=== PATIENT | male | born 1935 | race American Indian/Alaskan Native ===

== ENCOUNTER 2016-10-14 12:52 | Emergency (ER) | payer MEDICARE ==
[2016-10-14 13:00] VITALS: BMI 23.6
[2016-10-14 13:01] VITALS: RESP 18
--- NOTE | 2016-10-14 13:25 | C.PDOC ---
History Of Present Illness 81M c/o watery diarrhea small amount and intermittent for the last week that was worse/higher volume this morning. he went to see his pcp Dr Dietrich who then instructed him to come here. he denies any n/v or abdominal pain. no fever. Time Seen by Provider: 10/14/16 13:20 Chief Complaint (Nursing): Abdominal Pain History Per: Patient History/Exam Limitations: no limitations Onset/Duration Of Symptoms: Days, Intermittent Episodes Past Medical History Reviewed: Historical Data, Nursing Documentation, Vital Signs Vital Signs: Last Vital Signs Temp 97.4 F L 10/14/16 18:21 Pulse 80 10/14/16 18:21 Resp 18 10/14/16 13:00 BP 176/80 H 10/14/16 18:21 Pulse Ox 97 10/14/16 18:21 - Medical History PMH: HTN, Hypercholesterolemia - [facility] Procedures OTH & OPEN REPAIR DIRECT INGUINAL HERNIA W GRAFT OR PROSTH (08/04/14) Family History: States: No Known Family Hx Other Family History: nc - Social History Hx Alcohol Use: No Hx Substance Use: No - Immunization History Hx Tetanus Toxoid Vaccination: No Hx Influenza Vaccination: No Hx Pneumococcal Vaccination: No Review Of Systems Constitutional: Negative for: Fever, Chills Respiratory: Negative for: Cough, Shortness of Breath Gastrointestinal: Positive for: Diarrhea. Negative for: Nausea, Vomiting, Abdominal Pain, Melena, Hematochezia Genitourinary: Negative for: Dysuria Neurological: Positive for: Weakness (chronic from prior stroke) Physical Exam - Physical Exam Appears: Well, Non-toxic, No Acute Distress Skin: Warm, Dry Head: Atraumatic Nose: No Epistaxis Oral Mucosa: Moist Cardiovascular: Rhythm Regular Respiratory: No Decreased Breath Sounds, No Accessory Muscle Use, No Rales, No Rhonchi, No Wheezing Gastrointestinal/Abdominal: Bowel Sounds, No Soft, No Tenderness, No Distention , No Guarding, No Rebound Extremity: No Swelling Neurological/Psych: Oriented x3 ED Course And Treatment - Laboratory Results Result Diagrams: 10/14/16 13:47 10/14/16 14:06 O2 Sat by Pulse Oximetry: 99 (RA) Pulse Ox Interpretation: Normal - CT Scan/US CT - Abdomen & Pelvis Other Rad Studies (CT/US): Read By Radiologist, Radiology Report Reviewed CT/US Interpretation: PROCEDURE: CT Abdomen and Pelvis without intravenous contrast. HISTORY: abd pain. COMPARISON: None. TECHNIQUE: Without contrast.. Contrast Dose: 0. Radiation dose: Total exam DLP = 317.18 mGy-cm. This CT exam was performed using one or more of the following dose reduction techniques: Automated exposure control, adjustment of the mA and/or kV according to patient size, and/or use of iterative reconstruction technique. FINDINGS: LOWER THORAX: No abnormality. LIVER: Examination limited. The most superior aspect of the liver end of the spleen is not included in this examination. Normal size and contour. Multiple small hypodensities common nonspecific. Largest measures 12 mm in diameter. No biliary dilatation. GALLBLADDER AND BILE DUCTS: Cholelithiasis. No mural thickening. PANCREAS: Unremarkable. No gross lesion or ductal dilatation. SPLEEN: Unremarkable. ADRENALS: Unilateral left adrenal hypertrophy. No adrenal mass. KIDNEYS AND URETERS: Mid left renal fluid density mass, 4.5 cm diameter, with apparent internal septation. Recommend correlation with ultrasound examination. No right renal mass. No renal calculus or hydronephrosis. VASCULATURE: Unremarkable. No aortic aneurysm. BOWEL: Moderate retained feces. No bowel obstruction. APPENDIX: Not identified. No secondary findings to suggest acute appendicitis. PERITONEUM: Unremarkable. No free fluid. No free air. LYMPH NODES: Unremarkable. No enlarged lymph nodes. BLADDER: Unremarkable. REPRODUCTIVE: Radiation seed implants in prostate bed. BONES: Mild lumbar levoscoliosis. Grade 1 retrolisthesis at L5-S1. Multilevel central lumbar spinal stenosis, most severe at L3-4. OTHER FINDINGS: None. IMPRESSION: No acute abnormality. Multilevel lumbar spinal stenosis. Moderate retained feces. 4.5 cm septated left renal cyst. Recommend correlation with ultrasound examination. Cholelithiasis without evidence of cholecystitis. Additional minor findings as above. Medical Decision Making Medical Decision Making: disc w Dr Dietrich who rec CT abd/pelvis disc results w Dr Dietrich- rec f/i in office disc results w the pt who denies complaints at this time, v/u of and agrees w plan Disposition - Disposition Referrals: Dave Dietrich MD [Staff Provider] - Disposition: HOME/ ROUTINE Disposition Time: 18:31 Condition: GOOD Additional Instructions: Please follow up with Dr Dietrich in the next week for the incidental findings on your CT scan. Return to the ER for any worsening symptoms, abdominal pain, fever , or for any other concerns. Prescriptions: Cholestyramine/Aspartame [Cholestyramine Light] 4 gm PO BID PRN #1 bottle PRN Reason: Diarrhea Instructions: Acute Diarrhea (ED) Forms: General Discharge Instructions, [facility] (Japanese) - Clinical Impression Clinical Impression: Diarrhea
[2016-10-14] MEDS ORDERED: Sodium Chloride 0.9% 1,000 ML IV ONE (13:36)
[2016-10-14 13:51] LABS: BASO % 0.7 % (0.0-2.0); EOS # 0.1 K/uL (0.0-0.7); EOS % 1.2 % (0.0-4.0); HEMATOCRIT 35.4 % (35.0-51.0); LYMPH # 1.7 K/uL (1.0-4.3); LYMPH % 27.3 % (20.0-40.0); MEAN CELL VOLUME 88.5 fL (80.0-94.0); MEAN CORPUSCULAR HEMOGLOBIN 28.2 pg (27.0-31.0); MEAN CORPUSCULAR HGB CONC 31.9 g/dL (33.0-37.0); MEAN PLATELET VOLUME 7.3 fL (7.2-11.7); MONO # 0.4 K/uL (0.0-0.8); MONO % 6.9 % (0.0-10.0); RED CELL DISTRIBUTION WIDTH 14.3 % (11.5-14.5); WHITE BLOOD COUNT 6.3 K/uL (4.8-10.8)
[2016-10-14 14:23] LABS: CHLORIDE 106 mmol/L (98-107)
[2016-10-14 14:25] LABS: POTASSIUM 3.4 mmol/L (3.6-5.2); SODIUM 140 mmol/L (132-148)
[2016-10-14 14:27] LABS: ALKALINE PHOSPHATASE 64 U/L (38-126); AST/SGOT 24 U/L (17-59); BILIRUBIN,TOTAL 0.6 mg/dL (0.2-1.3); CARBON DIOXIDE 24 mmol/L (22-30); GFR AFRICAN-AMERICAN > 60
[2016-10-14 14:28] LABS: ALB/GLOB RATIO 1.2 (1.0-2.1); ALT/SGPT 25 U/L (21-72); BLOOD UREA NITROGEN 21 mg/dL (9-20); CALCIUM 8.8 mg/dl (8.6-10.4); GLUCOSE,RANDOM 88 mg/dL (75-110); TOTAL PROTEIN 7.1 g/dL (6.3-8.3)
[2016-10-14] MEDS ORDERED: Iohexol 240 (50 ml) ONE (15:16)
[2016-10-14] MEDS ORDERED: Iohexol 240 (50 ml) PO ONE (15:23)
--- NOTE | 2016-10-14 17:41 | CT ---
PROCEDURE: CT Abdomen and Pelvis without intravenous contrast HISTORY: abd pain COMPARISON: None. TECHNIQUE: Without contrast.. Contrast Dose: 0 Radiation dose: Total exam DLP = 317.18 mGy-cm. This CT exam was performed using one or more of the following dose reduction techniques: Automated exposure control, adjustment of the mA and/or kV according to patient size, and/or use of iterative reconstruction technique. FINDINGS: LOWER THORAX: No abnormality. LIVER: Examination limited. The most superior aspect of the liver end of the spleen is not included in this examination. Normal size and contour. Multiple small hypodensities common nonspecific. Largest measures 12 mm in diameter. No biliary dilatation. GALLBLADDER AND BILE DUCTS: Cholelithiasis. No mural thickening. PANCREAS: Unremarkable. No gross lesion or ductal dilatation. SPLEEN: Unremarkable. ADRENALS: Unilateral left adrenal hypertrophy. No adrenal mass. KIDNEYS AND URETERS: Mid left renal fluid density mass, 4.5 cm diameter, with apparent internal septation. Recommend correlation with ultrasound examination. No right renal mass. No renal calculus or hydronephrosis. VASCULATURE: Unremarkable. No aortic aneurysm. BOWEL: Moderate retained feces. No bowel obstruction. APPENDIX: Not identified. No secondary findings to suggest acute appendicitis. PERITONEUM: Unremarkable. No free fluid. No free air. LYMPH NODES: Unremarkable. No enlarged lymph nodes. BLADDER: Unremarkable. REPRODUCTIVE: Radiation seed implants in prostate bed. BONES: Mild lumbar levoscoliosis. Grade 1 retrolisthesis at L5-S1. Multilevel central lumbar spinal stenosis, most severe at L3-4. OTHER FINDINGS: None. IMPRESSION: No acute abnormality. Multilevel lumbar spinal stenosis. Moderate retained feces. 4.5 cm septated left renal cyst. Recommend correlation with ultrasound examination. Cholelithiasis without evidence of cholecystitis. Additional minor findings as above.
[2016-10-14 18:22] VITALS: BP 176/80; PULSE 80; TEMP 97.4
[2016-10-18 13:29] VITALS: O2SAT 99
== END 2016-10-14 18:50 | disposition home or self-care (01) ==
LOC: C.ER 12:52
DX: R19.7 Diarrhea, unspecified (principal); I10 Essential (primary) hypertension; E78.00 Pure hypercholesterolemia, unspecified
CPT/HCPCS: 74176; 80053; 83690; 85025; 96360; 99285; J7040; Q9966

== ENCOUNTER 2017-09-28 10:26 | Inpatient (IN) | payer MEDICARE ==
[2017-09-28 10:26] VITALS: BMI 23.6
[2017-09-28] MEDS ORDERED: Sodium Chloride 0.9% 1,000 ML IV ONE (11:14)
--- NOTE | 2017-09-28 11:40 | RAD ---
HISTORY: r/o infiltrate COMPARISON: Chest x-ray performed 07/24/14 TECHNIQUE: Chest, one view. FINDINGS: LUNGS: Bronchovascular crowding. Chronic appearing interstitial markings. No focal consolidation. Please note that chest x-ray has limited sensitivity for the detection of pulmonary masses. PLEURA: No significant pleural effusion identified. No definite pneumothorax . CARDIOVASCULAR: Cardiomegaly. OSSEOUS STRUCTURES: Degenerative changes of the spine. Partially imaged cervical fusion hardware. VISUALIZED UPPER ABDOMEN: Unremarkable. OTHER FINDINGS: None. IMPRESSION: Bronchovascular crowding. Chronic appearing interstitial markings. Cardiomegaly.
[2017-09-28 12:33] LABS: URINE BILIRUBIN NEGATIVE (NEGATIVE); URINE CLARITY Clear (Clear); URINE COLOR YELLOW (YELLOW); URINE GLUCOSE (UA) Normal (Normal)
[2017-09-28 12:34] LABS: URINE BLOOD SMALL (NEGATIVE); URINE LEUKOCYTE ESTERASE Negative Leu/uL (Negative); URINE PROTEIN NEGATIVE (NEGATIVE); URINE UROBILINOGEN 0.2 mg/dL (0.2-1.0)
[2017-09-28 12:35] LABS: SQUAMOUS EPITHIAL 2 /hpf (0-5)
[2017-09-28 12:36] LABS: URINE BACTERIA SMALL (<OCC)
[2017-09-28 13:13] LABS: ALB/GLOB RATIO 1.2 (1.0-2.1); ALBUMIN 4.1 g/dL (3.5-5.0); ALT/SGPT 23 U/L (21-72); AST/SGOT 19 U/L (17-59); BLOOD UREA NITROGEN 14 mg/dL (9-20); CALCIUM 9.3 mg/dl (8.6-10.4); GFR NON-AFRICAN AMERICAN > 60
--- NOTE | 2017-09-28 13:33 | VASCLAB ---
Date of service: 09/28/2017 PROCEDURE: Lower Extremity Venous Duplex Exam. HISTORY: Pain / Swelling r/o DVT PRIORS: None. TECHNIQUE: Bilateral common femoral, femoral, popliteal and posterior tibial, peroneal and great saphenous veins were evaluated. Flow was assessed with color Doppler, compressibility, assessment of phasic flow and augmentation response. Report prepared by Ruslan Horton, RADHA, RVT FINDINGS: RIGHT: 1. Common Femoral Vein: 1.1. Compressibility - Fully compressible: Thrombus - None : Flow - Phasic: Augmentation -Normal: Reflux - None. 2. Femoral Vein: 2.1. Compressibility - Fully compressible: Thrombus - None : Flow - Phasic: Augmentation -Normal: Reflux - None. 3. Popliteal Vein: 3.1. Compressibility - Fully compressible: Thrombus - None : Flow - Phasic: Augmentation -Normal: Reflux - None. 4. Posterior Tibial Vein: 4.1. Compressibility - Fully compressible: Thrombus - None: Flow - Phasic: Augmentation -Normal: Reflux - None. 5. Peroneal Vein: 5.1. Compressibility - Fully compressible: Thrombus - None: Flow - Phasic: Augmentation -Normal: Reflux - None. 6. Great Saphenous Vein: 6.1. Compressibility - Fully compressible: Thrombus - None: Flow - Phasic: Augmentation - Normal: Reflux - None. LEFT: 1. Common Femoral Vein: 1.1. Compressibility - Fully compressible: Thrombus - None: Flow - Phasic: Augmentation -Normal: Reflux - None. 2. Femoral Vein: 2.1. Compressibility - Fully compressible: Thrombus - None: Flow - Phasic: Augmentation -Normal: Reflux - None. 3. Popliteal Vein: 3.1. Compressibility - Fully compressible: Thrombus - None : Flow - Phasic: Augmentation -Normal: Reflux - None. 4. Posterior Tibial Vein: 4.1. Compressibility - Fully compressible: Thrombus - None: Flow - Phasic: Augmentation -Normal: Reflux - None. 5. Peroneal Vein: 5.1. Compressibility - Fully compressible: Thrombus - None: Flow - Phasic: Augmentation -Normal: Reflux - None. 6. Great Saphenous Vein: 6.1. Compressibility - Fully compressible: Thrombus - None: Flow - Phasic: Augmentation - Normal: Reflux - None. OTHER FINDINGS: Right: None significant. Left: None significant. IMPRESSION: Right: No evidence of deep or superficial vein thrombosis of the right lower extremity. Normal valve function noted of the right side. Left: No evidence of deep or superficial vein thrombosis of the left lower extremity. Normal valve function noted of the left side.
--- NOTE | 2017-09-28 13:46 | CT ---
Date of service: 09/28/2017 PROCEDURE: CT HEAD WITHOUT CONTRAST. HISTORY: weakness - h/o CVA in 2005 COMPARISON: None available TECHNIQUE: Axial computed tomography images were obtained through the head/brain without intravenous contrast. Radiation dose: Total exam DLP = 879.53 mGy-cm. This CT exam was performed using one or more of the following dose reduction techniques: Automated exposure control, adjustment of the mA and/or kV according to patient size, and/or use of iterative reconstruction technique. FINDINGS: HEMORRHAGE: No intracranial hemorrhage. BRAIN: Diffuse atrophy with prominence of the ventricles and sulci noted. No mass effect or edema. Bilateral basal ganglia calcifications. Scattered periventricular and subcortical white matter hypodensities, which are nonspecific, but often seen with chronic microvascular ischemic disease. 4mm right basal ganglia lacunar infarct, likely chronic. Please note that MRI with diffusion imaging is more sensitive in the detection of acute ischemic event. VENTRICLES: No hydrocephalus. CALVARIUM: Unremarkable. PARANASAL SINUSES: Unremarkable as visualized. No significant inflammatory changes. MASTOID AIR CELLS: Unremarkable as visualized. No inflammatory changes. OTHER FINDINGS: None. IMPRESSION: Nonspecific white matter changes. Generalized atrophy.
--- NOTE | 2017-09-28 14:11 | C.PDOC ---
History Of Present Illness 82 year old male patient sent to the ER by PMD for weakness, dizziness, decreased in appetite and falls. Family reports patient decreased ambulating second to weakness and poor appetite. Patient denies chest pain, SOB, fever and cough. Time Seen by Provider: 09/28/17 10:38 Chief Complaint (Nursing): Weakness/Neurological Deficit History Per: Patient, Family History/Exam Limitations: no limitations Onset/Duration Of Symptoms: Hrs Current Symptoms Are (Timing): Still Present Past Medical History Reviewed: Historical Data, Nursing Documentation, Vital Signs Vital Signs: Last Vital Signs Temp 98.2 F 09/28/17 17:42 Pulse 66 09/28/17 17:42 Resp 97 H 09/28/17 17:42 BP 178/73 H 09/28/17 17:42 Pulse Ox 20 L 09/28/17 17:42 - Medical History PMH: HTN, Hypercholesterolemia - [facility] Procedures OTH & OPEN REPAIR DIRECT INGUINAL HERNIA W GRAFT OR PROSTH (08/04/14) Family History: States: No Known Family Hx - Social History Hx Alcohol Use: No Hx Substance Use: No - Immunization History Hx Tetanus Toxoid Vaccination: No Hx Influenza Vaccination: No Hx Pneumococcal Vaccination: No Review Of Systems Except As Marked, All Systems Reviewed And Found Negative. Constitutional: Positive for: Other (decreased in appetite and falls ). Negative for: Fever Cardiovascular: Negative for: Chest Pain Respiratory: Negative for: Cough, Shortness of Breath Neurological: Positive for: Weakness, Dizziness Physical Exam - Physical Exam Appears: Non-toxic, No Acute Distress Skin: Normal Color, Warm, Dry Head: Atraumatic, Normacephalic Eye(s): bilateral: Normal Inspection Ear(s): Bilateral: Normal Oral Mucosa: Dry Throat: Normal Neck: Normal ROM, Supple Chest: Symmetrical, No Deformity Cardiovascular: Rhythm Regular Respiratory: Normal Breath Sounds Gastrointestinal/Abdominal: Soft, No Tenderness, No Distention Back: No CVA Tenderness Extremity: Normal ROM (x4) Neurological/Psych: Oriented x3, Normal Speech Gait: Steady ED Course And Treatment - Laboratory Results Result Diagrams: 09/28/17 14:14 09/28/17 12:56 ECG: Interpreted By Me, Viewed By Me ECG Rhythm: Sinus Rhythm ECG Interpretation: No Acute Changes Interpretation Of ECG: left axis deviation Rate From EC O2 Sat by Pulse Oximetry: 98 (RA) Pulse Ox Interpretation: Normal - Other Rad CXR X-Ray: Read By Radiologist Interpretation: Accession No. : [id number]. Patient Name / ID : NEW ASKEW / [id number]. Exam Date : 09/28/2017 11:18:27 ( Approved ). Study Comment : Sex / Age : M / 82Y. Creator : Laverne Pina MD. Dictator : Laverne Pina MD. Financial Services Technician : Heat Treat Technician : Laverne Pina MD. Approver2 : Report Date : 09/28/2017 11:39:15. My Comment : . HISTORY: r /o infiltrate. COMPARISON: Chest x-ray performed 07/24/14. TECHNIQUE: Chest, one view. FINDINGS: LUNGS: Bronchovascular crowding. Chronic appearing interstitial markings. No focal consolidation. Please note that chest x-ray has limited sensitivity for the detection of pulmonary masses. PLEURA: No significant pleural effusion identified. No definite pneumothorax . CARDIOVASCULAR: Cardiomegaly. OSSEOUS STRUCTURES: Degenerative changes of the spine. Partially imaged cervical fusion hardware. VISUALIZED UPPER ABDOMEN : Unremarkable. OTHER FINDINGS: None. IMPRESSION: Bronchovascular crowding. Chronic appearing interstitial markings. Cardiomegaly. duplex scan lower extremity X-Ray: Read By Radiologist Interpretation: Accession No. : [id number]. Patient Name / ID : NEW ASKEW / [id number]. Exam Date : 09/28/2017 13:04:49 ( Approved ). Study Comment : Sex / Age : M / 82Y. Creator : Lisa Jack. Dictator : Laverne Pina MD. Financial Services Technician : Heat Treat Technician : Laverne Pina MD. Approver2 : Report Date : 09/28/2017 13:12:01. My Comment : . Date of service: 09/28/2017. PROCEDURE: CT HEAD WITHOUT CONTRAST. HISTORY: weakness - h/o CVA in 2004. COMPARISON: None available. TECHNIQUE: Axial computed tomography images were obtained through the head/brain without intravenous contrast. Radiation dose: Total exam DLP = 879.53 mGy-cm. This CT exam was performed using one or more of the following dose reduction techniques: Automated exposure control, adjustment of the mA and/or kV according to patient size, and/or use of iterative reconstruction technique. FINDINGS: HEMORRHAGE: No intracranial hemorrhage. BRAIN: Diffuse atrophy with prominence of the ventricles and sulci noted. No mass effect or edema. Bilateral basal ganglia calcifications. Scattered periventricular and subcortical white matter hypodensities, which are nonspecific, but often seen with chronic microvascular ischemic disease. 4mm right basal ganglia lacunar infarct, likely chronic. Please note that MRI with diffusion imaging is more sensitive in the detection of acute ischemic event. VENTRICLES: No hydrocephalus. CALVARIUM: Unremarkable. PARANASAL SINUSES: Unremarkable as visualized. No significant inflammatory changes. MASTOID AIR CELLS: Unremarkable as visualized. No inflammatory changes. OTHER FINDINGS: None. IMPRESSION: Nonspecific white matter changes. Generalized atrophy. - CT Scan/US Head CT Other Rad Studies (CT/US): Read By Radiologist, Radiology Report Reviewed CT/US Interpretation: Accession No. : [id number]. Patient Name / ID : NEW ASKEW / [id number]. Exam Date : 09/28/2017 13:04:49 ( Approved ). Study Comment : Sex / Age : M / 82Y. Creator : Lisa Jack. Dictator : Laverne Pina MD. Financial Services Technician : Heat Treat Technician : Laverne Pina MD. Approver2 : Report Date : 09/28/2017 13:12:01. My Comment : . Date of service: 09/28/2017. PROCEDURE: CT HEAD WITHOUT CONTRAST. HISTORY: weakness - h/o CVA in 2004. COMPARISON: None available. TECHNIQUE: Axial computed tomography images were obtained through the head/brain without intravenous contrast. Radiation dose: Total exam DLP = 879.53 mGy-cm. This CT exam was performed using one or more of the following dose reduction techniques: Automated exposure control, adjustment of the mA and/or kV according to patient size, and/or use of iterative reconstruction technique. FINDINGS: HEMORRHAGE: No intracranial hemorrhage. BRAIN: Diffuse atrophy with prominence of the ventricles and sulci noted. No mass effect or edema. Bilateral basal ganglia calcifications. Scattered periventricular and subcortical white matter hypodensities, which are nonspecific, but often seen with chronic microvascular ischemic disease. 4mm right basal ganglia lacunar infarct, likely chronic. Please note that MRI with diffusion imaging is more sensitive in the detection of acute ischemic event. VENTRICLES: No hydrocephalus. CALVARIUM: Unremarkable. PARANASAL SINUSES: Unremarkable as visualized. No significant inflammatory changes. MASTOID AIR CELLS: Unremarkable as visualized. No inflammatory changes. OTHER FINDINGS: None. IMPRESSION: Nonspecific white matter changes. Generalized atrophy. Medical Decision Making Medical Decision Making: Impression: weakness, dizziness, decreased PO, and falls. Plans: -- CT head w/o contrast -- EKG -- blood work -- CXR -- IV fluids -- Urine cx -- UA -- Venous duplex scan Reassess: Patient is resting comfortably. Patient remains stable and afebrile. Disposition - Disposition Disposition: HOSPITALIZED Disposition Time: 14:20 Condition: STABLE - Clinical Impression Clinical Impression: Dehydration, Weakness - Scribe Statement The provider has reviewed the documentation as recorded by the Baltazar Reeder Do Provider Attestation: All medical record entries made by the Scribe were at my direction and personally dictated by me. I have reviewed the chart and agree that the record accurately reflects my personal performance of the history, physical exam, medical decision making, and the department course for this patient. I have also personally directed, reviewed, and agree with the discharge instructions and disposition.
[2017-09-28 14:22] LABS: BASO # 0.1 K/uL (0.0-0.2); BASO % 0.9 % (0.0-2.0); EOS # 0.3 K/uL (0.0-0.7); EOS % 4.3 % (0.0-4.0); HEMOGLOBIN 11.9 g/dL (12.0-18.0); LYMPH # 2.3 K/uL (1.0-4.3); MEAN CELL VOLUME 88.9 fL (80.0-94.0); MEAN CORPUSCULAR HEMOGLOBIN 29.7 pg (27.0-31.0); MEAN CORPUSCULAR HGB CONC 33.4 g/dL (33.0-37.0); MONO # 0.5 K/uL (0.0-0.8); MONO % 7.4 % (0.0-10.0); NEUT # 3.1 K/uL (1.8-7.0); NEUT % 50.4 % (50.0-75.0); NRBC % 0.1 % (0.0-2.0); RBC 4.03 Mil/uL (4.40-5.90); RED CELL DISTRIBUTION WIDTH 13.8 % (11.5-14.5); WHITE BLOOD COUNT 6.1 K/uL (4.8-10.8)
--- NOTE | 2017-09-28 19:07 | CARD ---
APPROVED REPORT Date of service: 09/28/2017 EKG Measurement Heart [id number] <Conclusion> Normal sinus rhythm Left axis deviation Minimal voltage criteria for LVH, may be normal variant Inferior infarct, age undetermined Abnormal ECG
--- NOTE | 2017-09-29 06:33 | HP ---
Copied To: Dave Dietrich MD Attending MD: Dave Dietrich MD HISTORY OF PRESENT ILLNESS: This is an 82-year-old male with history of multiple medical problems, presented to emergency room after frequent falls. The patient has been having unsteady gait that is getting worse with tendency to fall toward the right side. The patient was evaluated in the emergency room and admitted for further management. The patient has been walking with a cane, and the weakness has been due to lumbosacral radiculopathy. Other review of system is negative. ALLERGIES: NO KNOWN ALLERGY. MEDICATIONS: Reviewed as per APR. PAST MEDICAL HISTORY: Hypertension, benign prostatic hypertrophy, osteoarthritis. SOCIAL HISTORY: Positive for smoking. No EtOH or substance abuse. FAMILY HISTORY: Not contributory. MEDICATIONS: Reviewed as per APR. PHYSICAL EXAMINATION: GENERAL: The patient is in bed, not in any cardiopulmonary distress. VITAL SIGNS: Blood pressure 178/73, temperature 98.2, respiratory rate 20, and pulse 66. HEENT: Pupils equal, reactive to light. Normal-appearing mucosa of the conjunctivae. NECK: Supple. No JVD. No carotid bruit. No lymph node. No thyromegaly. CHEST AND LUNGS: Bilateral symmetrical expansion. Good air exchange. No rales. No rhonchi. CARDIOVASCULAR SYSTEM: PMI not localized. S1, S2. No additional sounds. ABDOMEN: Normoactive bowel sounds. No tenderness. No organomegaly. No masses. EXTREMITIES: No cyanosis, no clubbing, no edema. SOURCING INTERN: Alert, awake, oriented x3, and the patient has slight deformity of the left upper extremity. ASSESSMENT: 1. Lumbosacral radiculopathy. 2. Possible rheumatoid arthritis with morning stiffness and ulnar deviation of the left upper extremity. 3. Benign hypertrophic osteoarthropathy. PLAN: Neuro consult, and we will follow recommendations. Physical therapy workup for rheumatoid arthritis. Dave Dietrich MD
--- NOTE | 2017-09-29 07:10 | CP.PCM.CON ---
History of Present Illness - History of Present Illness History of Present Illness: CONSULT DICTATED POST TRAUMATIC - NEW WEAKNESS ON HIS LEFT SIDE AND REQUIRE WALKER CERVICAL MYELOPATHY ??? MICROPALEONTOLOGIST - STROKE BLADDER INTACT MRI BRAIN/CERV SPINE PT FALL PRECAUTION ASA/BACLOFEN REST PER ORDER THANKS Past Patient History - Past Medical History & Family History Past Medical History?: Yes - Past Social History Smoking Status: Heavy Smoker > 10 Cigarettes Daily - CARDIAC Hx Cardiac Disorders: Yes Hx Hypercholesterolemia: Yes Hx Hypertension: Yes - PULMONARY Hx Respiratory Disorders: No - NEUROLOGICAL Hx Neurological Disorder: Yes HX Cerebrovascular Accident: Yes (RT SIDED WEAKNESS) - HEENT Hx HEENT Problems: Yes Hx Cataracts: Yes - RENAL Hx Chronic Kidney Disease: No - ENDOCRINE/METABOLIC Hx Endocrine Disorders: No - HEMATOLOGICAL/ONCOLOGICAL Hx Cancer: Yes (PROSTATE) - INTEGUMENTARY Hx Dermatological Problems: No - MUSCULOSKELETAL/RHEUMATOLOGICAL Hx Musculoskeletal Disorders: Yes Hx Falls: Yes - GASTROINTESTINAL Hx Gastrointestinal Disorders: No - GENITOURINARY/GYNECOLOGICAL Hx Genitourinary Disorders: Yes Hx Prostate Cancer: Yes (SEEDS/RADIATION) - PSYCHIATRIC Hx Psychophysiologic Disorder: No Hx Substance Use: No - SURGICAL HISTORY Hx Surgeries: Yes Hx Musculoskeletal Surgery: Yes (CERVICAL /SCREWS AND PINS) Other/Comment: PROSTATE SEEDS/RADIATION - ANESTHESIA Hx Anesthesia: Yes Hx Anesthesia Reactions: No Hx Malignant Hyperthermia: No Has any member of the family had a problem w/ anesthesia?: No Meds Allergies/Adverse Reactions: Allergies Allergy/AdvReac Type Severity Reaction Status Date / Time No Known Allergies Allergy Verified 09/28/17 10:31 - Medications Medications: Current Medications Atenolol (Tenormin) 50 mg PO DAILY [facility] Chlorthalidone (Hygroton) 25 mg PO DAILY [facility] Folic Acid (Folic Acid) 1 mg PO DAILY [facility] Heparin Sodium (Porcine) (Heparin) 5,000 units SC Q12 [facility] Last Admin: 09/28/17 21:33 Dose: 5,000 units Pneumococcal Polyvalent Vaccine (Pneumovax 23 Vaccine) 0.5 ml IM .ONCE ONE Stop: 09/30/17 08:01 Rosuvastatin Calcium (Crestor) 10 mg PO [facility] Last Admin: 09/28/17 21:33 Dose: 10 mg Tamsulosin HCl (Flomax) 0.4 mg PO DAILY [facility] Results - Vital Signs Recent Vital Signs: Last Vital Signs Temp 98.1 F 09/28/17 23:49 Pulse 61 09/28/17 23:49 Resp 16 09/28/17 23:49 BP 130/69 09/28/17 23:49 Pulse Ox 98 09/28/17 23:49 - Labs Result Diagrams: 09/28/17 14:14 09/28/17 12:56 Labs: Laboratory Results - last 24 hr 09/28/17 09/28/17 09/28/17 11:44 12:56 14:14 WBC 6.1 RBC 4.03 L Hgb 11.9 L Hct 35.8 MCV 88.9 MCH 29.7 MCHC 33.4 RDW 13.8 Plt Count 242 MPV 7.0 L Neut % (Auto) 50.4 Lymph % (Auto) 37.0 [place] % (Auto) 7.4 Eos % (Auto) 4.3 H Baso % (Auto) 0.9 Neut # (Auto) 3.1 Lymph # (Auto) 2.3 [place] # (Auto) 0.5 Eos # (Auto) 0.3 Baso # (Auto) 0.1 Sodium 144 Potassium 4.0 Chloride 107 Carbon Dioxide 26 Anion Gap 16 BUN 14 Creatinine 1.0 Est GFR ( Amer) > 60 Est GFR (Non-Af Amer) > 60 Random Glucose 88 Calcium 9.3 Total Bilirubin 0.5 AST 19 ALT 23 Alkaline Phosphatase 86 Troponin I < 0.0120 Total Protein 7.5 Albumin 4.1 Globulin 3.4 Albumin/Globulin Ratio 1.2 Urine Color Yellow Urine Clarity Clear Urine pH 6.0 Ur Specific [place] 1.010 Urine Protein Negative Urine Glucose (UA) Normal Urine Ketones Negative Urine Blood Small Urine Nitrate Negative Urine Bilirubin Negative Urine Urobilinogen 0.2 Ur Leukocyte Esterase Negative Urine WBC (Auto) 4 Urine RBC (Auto) 6 H Ur Squamous Epith Cells 2 Urine Bacteria Small Urine Trichomonas Rare H
[2017-09-29 07:39] LABS: FREE T4 1.01 ng/dL (0.78-2.19)
[2017-09-29 08:24] LABS: FOLATE 8.6 ng/mL
[2017-09-29 08:31] VITALS: RESP 20
--- NOTE | 2017-09-29 13:43 | MRI ---
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 TECHNIQUE: Multiplanar, multisequence MR images of the brain were obtained without intravenous contrast enhancement. FINDINGS: HEMORRHAGE: No acute parenchymal, subarachnoid or extra-axial hemorrhage. No evidence hemosiderin deposition identified on gradient echo weighted sequence. DWI: No evidence of an acute or early subacute infarction seen on diffusion imaging. BRAIN PARENCHYMA: Mild diffuse/confluent chronic periventricular white matter ischemic changes are present. There are also a few tiny lacunar-type infarcts scattered about deep and subcortical white matter both cerebral hemispheres. No obvious parenchymal nor extra-axial mass or collection identified on this noncontrast study. Mild to moderate generalized volume loss. VENTRICLES: No obstructive hydrocephalus. CRANIUM: Unremarkable. ORBITS: Orbits and contents unremarkable. PARANASAL SINUSES/MASTOIDS: Clear VASCULAR SYSTEM: Visualized major vascular flow voids at skull base patent. OTHER FINDINGS: None. IMPRESSION: No evidence of acute intracranial hemorrhage or infarct. Mild chronic white matter ischemic changes. Mild moderate generalized volume loss.
--- NOTE | 2017-09-29 15:33 | MRI ---
Date of service: 09/29/2017 PROCEDURE: MR CERVICAL SPINE WITHOUT CONTRAST HISTORY: POST TRAUMATIC - CERVICAL MYELOPATHY COMPARISON: None available. TECHNIQUE: Multiecho multiplanar sequences were performed through the cervical spine without the use of intravenous contrast. FINDINGS: There is 3 mm degenerative retrolisthesis of C6 on C7. There is reversal of normal cervical lordosis with moderate cervical kyphosis. There are advanced degenerative endplate marrow changes at C5-6 and C6-7, otherwise bone marrow signal is within normal limits. The craniocervical junction is normal. There is severe degenerative osteoarthrosis at the atlantoaxial joint with significant periarticular soft tissue. There is multilevel laminectomy from C2 to C4 and posterior spinal fusion with transpedicular screws from C2 to C5. The cervical cord is normal in contour with mild diffuse volume loss. There is focal abnormal T2 signal in the left hemicord at C3-4. C2-C3: No disc herniation, spinal canal stenosis or neural foraminal narrowing. C3-C4: No disc herniation, spinal canal stenosis or neural foraminal narrowing. C4-C5: Broad-based disc osteophyte complex and superimposed central annular tear and disc protrusion. Also noted is moderate right neural foraminal narrowing. C5-C6: Broad-based disc osteophyte complex with asymmetric right uncovertebral joint hypertrophy in conjunction with mild ligamentum flavum infolding result in mild spinal canal stenosis. Mild bilateral facet arthropathy contribute to severe right neural foraminal narrowing. C6-C7: Broad-based disc osteophyte complex with superimposed right foraminal disc protrusion in conjunction with mild facet arthropathy result in severe neural foraminal narrowing, worse on the right and mild spinal canal stenosis. C7-T1: Mild No disc herniation, spinal canal stenosis or neural foraminal narrowing. OTHER FINDINGS: None. IMPRESSION: 1. Status post extensive multilevel laminectomy and posterior spinal fixation with transpedicular screws. 2. Multilevel degenerative disc disease, worse at C6-7 with a broad-based disc osteophyte complex and superimposed right foraminal disc protrusion which in conjunction with mild facet arthropathy result in severe neural foraminal narrowing, worse on the right and mild spinal canal stenosis. 3. Linear segmental myelomalacia in the left hemicord at C3-4.
--- NOTE | 2017-09-29 15:56 | CON ---
Copied To: Julito Solo MD Attending MD: Dave Dietrich MD DATE: 09/29/2017 TIME OF EVALUATION: 07:05 a.m. LOCATION: The patient is in room #357, bed A. REASON FOR RE-CONSULTATION: Frequent fall. CHIEF COMPLAINT: The patient was brought into [facility] with history of frequent fall. From neurological point of view, I was called in to evaluate him for further management. HISTORY OF PRESENTING ILLNESS: Mr. Nii Sanders is an 82-year-old thinly-built, right-handed -[place]i male, been using the cane ever since he had a stroke in 2002, manifesting with abrupt onset of his right leg weakness. He was hospitalized at that time for 14 days and he was found to have problem in his neck and he did have a surgery at that time. Ever since then, he has been using the cane. History of fall a week ago, suddenly the leg gave up, fell down. He fell backwards and hit his neck. Ever since he noticed that stiffness of his left arm and left leg, which requires him to ambulate well with using the walker. No history of back pain. No history of bowel or bladder incontinence since his fall. By asking him is there any fall prior to this fall, he could not able to recall. He admits he might have fallen prior to this recent fall as well. All these falls not associating with loss of consciousness. From the fall, he could not able to get up by himself with support. He noticed weakness of his both lower extremities. PAST MEDICAL HISTORY: Hypertension, BPH, osteoarthritis, status post cervical laminectomy in 2004. PERSONAL HISTORY: He smokes. No history of alcohol abuse. 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 MEDICATIONS: Crestor, Flomax, folic acid, SQ heparin, chlorthalidone, atenolol and IV hydration. REVIEW OF SYSTEMS: A 12-point system being reviewed. From neuro, frequent fall. PHYSICAL EXAMINATION: VITAL SIGNS: Blood pressure 130/69, mean arterial pressure of 89, respiratory rate 16, temperature 98.1, pulse rate 61 and regular. NECK: Postsurgical scar; however, neck has stiffness from voluntary guarding. No carotid bruits. HEART: Sounds regular. Chest fair air entry. EXTREMITIES: No edema in legs. NEUROLOGICAL: Mental status examination, he is awake, alert and orient to person, place and time. Speech is clear. Naming, repetition, fluency, comprehension all within normal. He has been presenting with significant short term as well as fci memory impairment. No sign of hallucination. No sign of suicidal ideation. He is very cooperative. Cranial nerve examination, visual field respond to visual threat. Pupils reactive to light. Extraocular movement markedly decreased in all direction. No facial or sensory deficit. No facial asymmetry. Hearing is normal. Tongue is midline. Good gag. Motor examination, significant weakness related to the stiffness of his left upper extremities. He could not able to lift upper extremities against the gravity to compare with the right arm. He could not able to lift both lower extremities against the gravity. Significant weakness on the left side; however, he could able to lift individually both lower extremities. Deep tendon reflexes, biceps, brachialis, triceps hyperreflexic in the upper extremities. Both knees are 1+, both ankles are absent. Plantars are upgoing on both sides. Sensory examination, position sense is intact. Significant distal sensory motor neuropathy. Coordination; finger-nose test is intact on his right side. On left side, he could able to do due to his stiffness. Gait is deferred at this time. He could able to void his urine on his own without any assistance. WORKUP: WBC 6.1, hemoglobin 11.9, hematocrit 35.8, platelets 242. Sodium 144, potassium 4, chloride 107, bicarbonate 26, BUN 14, creatinine 1, GFR more than 60, calcium 9.3, AST 19, ALT 23. Urinalysis shows 6+ rbc's. CT of the head reviewed showed multiple periventricular ischemic changes with basal ganglia old infarct. CONCLUSION: Mr. Nii Sanders has been presenting with posttraumatic quadriparesis consistent with cervical cause. This is related to his previous injury and posttraumatic cervical myelopathy. However considering his history of hypertension and dyslipidemia, central causes should be ruled out, particularly the posterior cerebral artery distribution. 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 RECOMMENDATIONS: 1. Bedrest, fall precaution, DVT prophylaxis. 2. Adequate hydration. 3. Physical therapy evaluation to stabilize his gait. 4. MRI of the brain as well as the cervical spine to rule out any structural cause to explain his problem. 5. EEG to rule out any seizures because of his frequent fall. 6. The patient should be on antiplatelet for stroke prophylaxis including proper blood pressure management with statins. 7. The patient can be benefited with Baclofen to relieve his spasticity. The patient's condition has been well discussed. The patient will be followed closely with you. Julito Solo MD MTDRonnell
[2017-09-29] MEDS: Baclofen 5 mg Tab PO SCH (18:00)
[2017-09-29 18:27] LABS: RAPID PLASMA REAGIN REACTIVE (NONREACTIVE)
[2017-09-30] MEDS ORDERED: Pneumococcal 23-Valent Vaccine IM ONE (08:00)
[2017-09-30] MEDS: Baclofen 5 mg Tab PO SCH ×2 (09:29→18:00)
--- NOTE | 2017-09-30 13:23 | PN ---
Copied To: Dave Dietrich MD Attending MD: Dave Dietrich MD DATE: 09/29/2017 SUBJECTIVE: The patient was seen on 09/29/2017. He was not in any cardiopulmonary distress. PHYSICAL EXAMINATION: VITAL SIGNS: Blood pressure 146/67, temperature 97.7, respiratory rate 20, and pulse 59. HEENT: Pupils equal, reactive to light. Normal-appearing mucosa of the conjunctivae, oropharynx, and nasal membrane mucosa. NECK: Supple. No JVD. No carotid bruit. No lymph node. No thyromegaly. CHEST AND LUNGS: Bilateral symmetrical expansion. Good air exchange. No rales. No rhonchi. CARDIOVASCULAR SYSTEM: PMI not localized. S1 and S2. No additional sounds. ABDOMEN: Normoactive bowel sounds. No tenderness. No organomegaly. No masses. EXTREMITIES: No cyanosis. No clubbing. No edema. 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 ASSESSMENT: 1. Frequent falls secondary to progressive neurological deficits. 2. Benign prostatic hypertrophy. 3. Hypertension. PLAN: Follow neurology recommendations and continue current physical therapy. Plan for subacute rehab. Dave Dietrich MD
--- NOTE | 2017-09-30 18:10 | PN ---
Copied To: Dave Dietrich MD Attending MD: Dave Dietrich MD DATE: 09/30/2017 SUBJECTIVE: The patient is seen today, 09/30/2017. He still has unsteady gait and stiffness of both lower extremities, left more than right. PHYSICAL EXAMINATION: VITAL SIGNS: Blood pressure is 128/74, temperature 97.7, respiratory rate 20, and pulse 64. HEENT: Pupils equal, reactive to light. Normal-appearing mucosa of the conjunctivae, oropharynx and nasal membrane mucosa. NECK: Supple. No JVD. No carotid bruit. No lymph node. No thyromegaly. CHEST AND LUNGS: Bilateral symmetrical expansion. Good air exchange. No rales. No rhonchi. CARDIOVASCULAR SYSTEM: PMI not localized. S1 and S2. No additional sounds. ABDOMEN: Normoactive bowel sounds. No tenderness. No organomegaly. No masses. EXTREMITIES: No cyanosis, no clubbing, no edema. 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 ASSESSMENT: Spinal stenosis with myelopathy and weakness with quadriparesis with the left side more than right, hypertension, benign prostatic hypertrophy. PLAN: Continue physical therapy, fall precautions, follow neurology recommendations, and subacute rehabilitation planning. Dave Dietrich MD
[2017-10-01 09:03] LABS: BASO % 0.5 % (0.0-2.0); EOS # 0.5 K/uL (0.0-0.7); EOS % 6.5 % (0.0-4.0); HEMOGLOBIN 12.5 g/dL (12.0-18.0); LYMPH % 40.3 % (20.0-40.0); MEAN CORPUSCULAR HEMOGLOBIN 29.4 pg (27.0-31.0); MEAN PLATELET VOLUME 7.2 fL (7.2-11.7); MONO # 0.6 K/uL (0.0-0.8); MONO % 8.8 % (0.0-10.0); NEUT # 3.3 K/uL (1.8-7.0); NEUT % 43.9 % (50.0-75.0); NRBC % 0.1 % (0.0-2.0); RBC 4.26 Mil/uL (4.40-5.90); RED CELL DISTRIBUTION WIDTH 14.1 % (11.5-14.5); WHITE BLOOD COUNT 7.4 K/uL (4.8-10.8)
[2017-10-01 09:38] LABS: BLOOD UREA NITROGEN 24 mg/dL (9-20); CALCIUM 9.6 mg/dl (8.6-10.4); GFR NON-AFRICAN AMERICAN 53
[2017-10-01] MEDS: Baclofen 5 mg Tab PO SCH ×2 (09:49→17:42)
--- NOTE | 2017-10-02 10:34 | VASCLAB ---
Date of service: 09/29/2017 PROCEDURE: HISTORY: assess stenosis COMPARISON: None available. TECHNIQUE: Grayscale and duplex Doppler evaluation of the cervical carotid and vertebral arteries were performed. The common carotid, carotid bifurcations and cervical Internal Carotid Artery (ICA) and proximal External Carotid Artery (ECA) were evaluated. The vertebral arteries were evaluated for gross patency and flow direction. Report prepared by Ruslan Horton, BS, RVT FINDINGS: RIGHT CAROTID ARTERIES: 1. Common Carotid Artery: No significant focal plaque formation of the right common carotid artery. Maximum Peak Systolic velocity: 88 cm/sec: End-diastolic velocity 12 cm/sec. 2. Carotid Bifurcation: plaque formation. Maximum Peak Systolic velocity: 83 cm/sec: End-diastolic velocity 7 cm/sec. 3. Internal Carotid Artery: Plaque description: 3.1. Proximal Segment: Peak systolic velocity 72 cm/sec: End-diastolic velocity 15 cm/sec - % stenosis 0-15% 3.2. Middle Segment: Peak systolic velocity 119 cm/sec: End-diastolic velocity 28 cm/sec - % stenosis 0-15% 3.3. Distal Segment: Peak systolic velocity 91 cm/sec: End-diastolic velocity 21 cm/sec - % stenosis 0-15% 4. External Carotid Artery: No significant focal plaque formation. Peak systolic velocity 86 cm/sec 5. ICA/CCA Ratio: 1.4 LEFT CAROTID ARTERIES: 1. Common Carotid Artery: No significant focal plaque formation of the left common carotid artery. Maximum Peak Systolic velocity: 99 cm/sec: End-diastolic velocity 12 cm/sec. 2. Carotid Bifurcation: Heterogeneous plaque formation. Maximum Peak Systolic velocity: 72 cm/sec: End-diastolic velocity 9 cm/sec. 3. Internal Carotid Artery: Mild plaque formation of the left proximal ICA which does not results in a hemodynamically significant stenosis. Plaque description: Heterogeneous 3.1. Proximal Segment: Peak systolic velocity 138 cm/sec: End-diastolic velocity 25 cm/sec - % stenosis 0-15% 3.2. Middle Segment: Peak systolic velocity 119 cm/sec: End-diastolic velocity 16 cm/sec - % stenosis 0-15% 3.3. Distal Segment: Peak systolic velocity 114 cm/sec: End-diastolic velocity 12 cm/sec - % stenosis 0-15% 4. External Carotid Artery: No significant focal plaque formation. Peak systolic velocity 96 cm/sec 5. ICA/CCA Ratio: 1.4 VERTEBRAL ARTERIES: 1. Right Vertebral Artery: The right vertebral artery flow direction is antegrade. 2. Left Vertebral Artery: The left vertebral artery flow direction is antegrade. OTHER FINDINGS: 1. Right Brachial Blood pressure: 158 mmHg. 2. Left Brachial Blood pressure: 144 mmHg. IMPRESSION: RIGHT: Duplex scan does not suggest hemodynamically significant stenosis of the right extracranial carotid arteries. LEFT: Duplex scan does not suggest hemodynamically significant stenosis of the left extracranial carotid arteries.
[2017-10-02] MEDS: Baclofen 5 mg Tab PO SCH ×2 (10:56→17:08)
--- NOTE | 2017-10-02 13:18 | PN ---
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 PHYSICAL EXAMINATION: VITAL SIGNS: Blood pressure 119/71, mean arterial pressure of 87, respiratory rate 18, pulse rate is 54, regular sinus, temperature 97.8. The patient slept good. No complaints. He is ambulatory with using the quad cane. No recent fall since his admission. No increasing weakness or involuntary movements during the hospitalization. His workup including MRI of the brain has been reviewed. No acute pathology except age-related atrophy noted. MRI of the cervical spine reviewed by me showed post surgical changes with multiple screw in placement of spine from C2-C6. Significant myelomalacia noted at C2-C3 level that would reflect his clinical presentation of spasticity on his left more than his right side. Significant stenosis as well noted at C5-C6 level with bilateral neuroforaminal stenosis. RECOMMENDATION: The patient is neurologically stable and clear to be discharged, and the patient should get outpatient rehabilitation. The patient should be advised to use walker than cane at present. The patient is medically stable. Can be discharged and should have followup visit with me as outpatient. Julito Solo MD
--- NOTE | 2017-10-02 17:29 | CP.PCM.PN ---
Subjective - Date & Time of Evaluation Date of Evaluation: 10/02/17 Time of Evaluation: 17:29 Objective - Vital Signs/Intake and Output Vital Signs (last 24 hours): Temp Pulse Resp BP Pulse Ox 97.7 F 75 20 131/66 99 10/02/17 15:00 10/02/17 15:00 10/02/17 15:00 10/02/17 15:00 10/02/17 15:00 Intake and Output: 10/02/17 10/02/17 06:59 18:59 Intake Total 480 Balance 480 - Medications Medications: Current Medications Aspirin (Ecotrin) 81 mg PO DAILY [facility] Last Admin: 10/02/17 10:55 Dose: 81 mg Atenolol (Tenormin) 50 mg PO DAILY [facility] Last Admin: 10/02/17 10:55 Dose: 50 mg Baclofen (Lioresal) 5 mg PO BID [facility] Last Admin: 10/02/17 17:08 Dose: 5 mg Chlorthalidone (Hygroton) 25 mg PO DAILY [facility] Last Admin: 10/02/17 10:55 Dose: 25 mg Folic Acid (Folic Acid) 1 mg PO DAILY [facility] Last Admin: 10/02/17 10:55 Dose: 1 mg Rosuvastatin Calcium (Crestor) 10 mg PO HS [facility] Last Admin: 10/01/17 21:19 Dose: 10 mg Tamsulosin HCl (Flomax) 0.4 mg PO DAILY [facility] Last Admin: 10/02/17 10:55 Dose: 0.4 mg - Labs Labs: 10/01/17 08:56 10/01/17 08:56 Assessment and Plan - Assessment and Plan (Free Text) Assessment: 82 yr male admitted with frequent falls, seen and examined. Alert, awake, on the chair. Denies sob or chest pains. Cleared by DR Solo for discharge to rehab. Discussed with DR Dietrich, [facility].
[2017-10-03] MEDS ORDERED: Oxycodone/Acetaminophen 5/325 mg Tab PO PRN (10:01)
[2017-10-03] MEDS: Baclofen 5 mg Tab PO SCH ×2 (10:03→17:37)
--- NOTE | 2017-10-03 12:42 | PN ---
Copied To: Julito Solo MD Attending MD: Julito Solo MD DATE: 09/29/2017 NEUROLOGICAL PROBLEM: Cervical myelopathy with peripheral neuropathy. PHYSICAL EXAMINATION: VITAL SIGNS: Blood pressure 112/56, mean arterial pressure of 74, respiratory rate 18, temperature 98.1, and pulse rate 58. The patient slept good. He intended to go home. He was thinking of he left home yesterday. His examination is unchanged compared with my previous examination. 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 The patient's condition has been well discussed. He is unaware of this problem, being 82-year-old, being tested in the past and never showed up. He is not sexually active at present. Because of the spinal complication, he does not want to have any spinal tap to rule out central manifestation from possible syphilis complication. At this point, the patient should be recommended to be evaluated by infectious disease specialist, probably empirically the patient should be treated with penicillin. The patient's condition also discussed with registered nurse as well. Julito Solo MD CHERRIE
--- NOTE | 2017-10-03 13:03 | PN ---
Copied To: Dave Dietrich MD Attending MD: Dave Dietrich MD DATE: 10/02/2017 SUBJECTIVE: The patient was seen on 10/02/2017. He was not in any cardiopulmonary distress. PHYSICAL EXAMINATION: VITAL SIGNS: Blood pressure was 131/66, temperature 97.7, respiratory rate 20, and pulse 75. HEENT: Pupils equal, reactive to light. Normal-appearing mucosa of the conjunctivae, oropharynx, and nasal membrane mucosa. NECK: Supple. No JVD. No carotid bruit. No lymph nodes. No thyromegaly. CHEST AND LUNGS: Bilateral symmetrical expansion. Good air exchange. No rales. No rhonchi. CARDIOVASCULAR SYSTEM: PMI not localized. S1 and S2. No additional sounds. ABDOMEN: Normoactive bowel sounds. No tenderness. No organomegaly. No masses. EXTREMITIES: No cyanosis. No clubbing. No edema. 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 The patient has quadriparesis secondary to cervical myelopathy. ASSESSMENT: 1. Frequent falls, quadriparesis with left lower extremity with left side weaker than the right. 2. Hypertension. 3. Benign prostate hypertrophy. PLAN: Continue current physical therapy and the patient is for subacute rehabilitation. Dave Dietrich MD
[2017-10-03] MEDS ORDERED: Penicillin G Benzathine 2.4 Mill Unit/4 ml Syr IM ONE (13:28)
--- NOTE | 2017-10-03 13:28 | CP.PCM.CON ---
History of Present Illness - History of Present Illness History of Present Illness: dictated Past Patient History - Past Medical History & Family History Past Medical History?: Yes - Past Social History Smoking Status: Heavy Smoker > 10 Cigarettes Daily - CARDIAC Hx Cardiac Disorders: Yes Hx Hypercholesterolemia: Yes Hx Hypertension: Yes - PULMONARY Hx Respiratory Disorders: No - NEUROLOGICAL HX Cerebrovascular Accident: Yes (RT SIDED WEAKNESS 2004) - HEENT Hx HEENT Problems: Yes Hx Cataracts: Yes - RENAL Hx Chronic Kidney Disease: No - ENDOCRINE/METABOLIC Hx Endocrine Disorders: No - HEMATOLOGICAL/ONCOLOGICAL Hx Cancer: Yes (PROSTATE) - INTEGUMENTARY Hx Dermatological Problems: No - MUSCULOSKELETAL/RHEUMATOLOGICAL Hx Arthritis: Yes (NECK, BACK SURGERIES; L SH STIFF) - GASTROINTESTINAL Hx Gastrointestinal Disorders: No - GENITOURINARY/GYNECOLOGICAL Hx Genitourinary Disorders: Yes Hx Prostate Cancer: Yes (SEEDS/RADIATION) - PSYCHIATRIC Hx Psychophysiologic Disorder: No Hx Substance Use: No - SURGICAL HISTORY Hx Surgeries: Yes Hx Musculoskeletal Surgery: Yes (CERVICAL /SCREWS AND PINS) Other/Comment: PROSTATE SEEDS/RADIATION - ANESTHESIA Hx Anesthesia: Yes Hx Anesthesia Reactions: No Hx Malignant Hyperthermia: No Has any member of the family had a problem w/ anesthesia?: No Meds Home Medications: Home Medication List Medication Instructions Recorded Confirmed Type Aspirin [Ecotrin] 81 mg PO DAILY tabec 10/02/17 Rx Baclofen [Lioresal] 5 mg PO BID tab 10/02/17 Rx Allergies/Adverse Reactions: Allergies Allergy/AdvReac Type Severity Reaction Status Date / Time No Known Allergies Allergy Verified 09/28/17 10:31 - Medications Medications: Current Medications Aspirin (Ecotrin) 81 mg PO DAILY [facility] Last Admin: 10/03/17 10:02 Dose: 81 mg Atenolol (Tenormin) 50 mg PO DAILY [facility] Last Admin: 10/03/17 10:02 Dose: 50 mg Baclofen (Lioresal) 5 mg PO BID [facility] Last Admin: 10/03/17 10:03 Dose: 5 mg Chlorthalidone (Hygroton) 25 mg PO DAILY [facility] Last Admin: 10/03/17 10:02 Dose: 25 mg Folic Acid (Folic Acid) 1 mg PO DAILY [facility] Last Admin: 10/03/17 10:02 Dose: 1 mg Oxycodone/Acetaminophen (Percocet 5/325 Mg Tab) 1 tab PO Q6H PRN PRN Reason: Pain, severe (8-10) Stop: 10/06/17 10:02 Last Admin: 10/03/17 10:10 Dose: 1 tab Rosuvastatin Calcium (Crestor) 10 mg PO HS [facility] Last Admin: 10/02/17 21:32 Dose: 10 mg Tamsulosin HCl (Flomax) 0.4 mg PO DAILY [facility] Last Admin: 10/03/17 10:02 Dose: 0.4 mg Results - Vital Signs Recent Vital Signs: Last Vital Signs Temp 98.7 F 10/03/17 08:00 Pulse 69 10/03/17 08:00 Resp 20 10/03/17 08:00 BP 112/69 10/03/17 08:00 Pulse Ox 96 10/03/17 08:00 - Labs Result Diagrams: 10/01/17 08:56 10/01/17 08:56 Labs: Laboratory Results - last 24 hr 09/29/17 09/29/17 06:53 06:53 Serum Immunofixation Not detected T.pallidum Ab (FTA-ABS) Reactive H
[2017-10-03 16:32] VITALS: BP 133/67; PULSE 57; TEMP 98.5; O2SAT 97
--- NOTE | 2017-10-03 17:39 | CP.PCM.PN ---
Subjective - Date & Time of Evaluation Date of Evaluation: 10/03/17 Time of Evaluation: 17:39 - Subjective Subjective: Alert, awake, out of bed, no acute distress. Objective - Vital Signs/Intake and Output Vital Signs (last 24 hours): Temp Pulse Resp BP Pulse Ox 98.5 F 57 L 20 133/67 97 10/03/17 16:00 10/03/17 16:00 10/03/17 16:00 10/03/17 16:00 10/03/17 16:00 Intake and Output: 10/03/17 10/03/17 06:59 18:59 Intake Total 300 350 Output Total 500 Balance 300 -150 - Medications Medications: Current Medications Aspirin (Ecotrin) 81 mg PO DAILY [facility] Last Admin: 10/03/17 10:02 Dose: 81 mg Atenolol (Tenormin) 50 mg PO DAILY [facility] Last Admin: 10/03/17 10:02 Dose: 50 mg Baclofen (Lioresal) 5 mg PO BID [facility] Last Admin: 10/03/17 10:03 Dose: 5 mg Chlorthalidone (Hygroton) 25 mg PO DAILY [facility] Last Admin: 10/03/17 10:02 Dose: 25 mg Folic Acid (Folic Acid) 1 mg PO DAILY [facility] Last Admin: 10/03/17 10:02 Dose: 1 mg Oxycodone/Acetaminophen (Percocet 5/325 Mg Tab) 1 tab PO Q6H PRN PRN Reason: Pain, severe (8-10) Stop: 10/06/17 10:02 Last Admin: 10/03/17 10:10 Dose: 1 tab Rosuvastatin Calcium (Crestor) 10 mg PO HS [facility] Last Admin: 10/02/17 21:32 Dose: 10 mg Tamsulosin HCl (Flomax) 0.4 mg PO DAILY [facility] Last Admin: 10/03/17 10:02 Dose: 0.4 mg - Labs Labs: 10/01/17 08:56 10/01/17 08:56 Assessment and Plan - Assessment and Plan (Free Text) Assessment: Patient admitted with weakness, frequent falls, seen and examined. Alert and orientedx3, no acute distress. Inj penicillin G IM given for possible syphilis as per DR Isabel, cleared for discharge to rehab. Discussed with DR Dietrich, plan to discharge to [facility] today.
--- NOTE | 2017-10-04 07:42 | CON ---
Copied To: Tabatha Isabel MD Attending MD: Tabatha Isabel MD DATE: 10/03/2017 INFECTIOUS DISEASE CONSULTATION REQUESTING PHYSICIAN: Dr. Dietrich This consult was requested by Dr. Quinonez, I am covering him. HISTORY OF PRESENT ILLNESS: This patient is an 82-year-old male. He came in with weakness, dizziness, poor appetite. He has been falling. He says he has weakness on his whole left side and is unable to ambulate and poor appetite. He denied any fever, chills, shortness of breath, or cough. I am asked to evaluate him because his RPR is positive at 1:2. The patient was seen by Dr. Solo also, and he refused for an LP. He wants to go to the rehab for physical therapy, and he says he was asking for pain medications, and he says he is still looking for a pain medication as he is in too much pain. PAST MEDICAL HISTORY: He has history of hypertension and hypercholesterolemia. He says he has lot of back issue and had injections in his back before and feels like knot. He had an open repair. He had direct inguinal hernia with graft or prosthesis done in 2014. FAMILY HISTORY: Noncontributory. REVIEW OF SYSTEMS: He denies any headaches. Denies ear, nose, throat problem. Denies any chest pain. No shortness of breath. No abdominal pain. No nausea, no vomiting, but he does say whole left side is hurting him, and he is not able to ambulate, feels weak. He denies any history of syphilis, but he says he has received many injections in his back, and his back hurts a lot, and he does not want to take any shots. He said he refused for an LP before, and so he was admitted with after a fall, left-sided weakness and his RPR is 1:2. He, however, does not recall if he was ever treated. He was seen, and he is supposed to have MRI of brain and cervical spine; and he is on pain medications. His past medical history is noted. He is a heavy smoker, 10 cigarettes per day. He has hypercholesteremia, hypertension. No respiratory problems. He did have a CVA, right-sided weakness before. No chronic kidney disease. No endocrine issues. He has cancer of prostate. He has no abdominal issues. He denies any urinary issues but he had seeds and radiation for prostate cancer. He denies any psychiatric issues. Surgery is for prostate seeds, and he has cervical screws and pins there. He also states that he has had back injections, maybe, for pain. ALLERGIES: HE IS NOT ALLERGIC TO ANY MEDICINES. MEDICATIONS: Included atenolol, chlorthalidone, folic acid, heparin, Crestor, tamsulosin. He denied any fevers at home. He came in with a T-max of 98.1 His medications here are aspirin, atenolol, baclofen, chlorthalidone, folic acid, oxycodone, calcium, and tamsulosin. PHYSICAL EXAMINATION: VITAL SIGNS: I find his temperature is 98.5, pulse is 57, blood pressure 133/67, respirations are 20. HEENT: Head is atraumatic, normocephalic. NECK: Supple. JVP is flat. LUNGS: Clear. No crackles or rales present. Decreased breath sounds. HEART: S1 and S2, regular. ABDOMEN: Soft, nontender. No guarding. No rigidity present. EXTREMITIES: He has some left-sided weakness. He is being evaluated by the neurologist. Labs are noted. White count is 7.4, hemoglobin 12.5, hematocrit 37.9, platelet count is 273. BUN is 24, creatinine is 1.3. Serology came out FTA-ABS is reactive and RPR is 1:2. Since he does have low RPR positive, rheumatoid is negative, YOLY is negative, cyclic citrullinated peptide IgG is pending at this time for rheumatoid arthritis. UA shows rbc 6. 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 He may have been treated as the low and he refused for an LP, so cannot treat for a neurosyphilis but I will treat him as a secondary syphilis or late latent syphilis and give him Bicillin L-A one injection today of 2.4 million units and two more weekly injections can be given if he is here or if he goes to rehab. The patient is admitted after fall. He has a history of smoking, and he needs rehab for his vague symptoms and for ambulation. Tabatha Isabel MD [facility] # [id number]
--- NOTE | 2017-10-12 09:18 | DS ---
REASON FOR ADMISSION: This is an 82-year-old male with history of multiple medical problems, was admitted for frequent falls and unsteadiness. COURSE OF HOSPITALIZATION: The patient was admitted to medical floor and he had a neuro check every 4 hours. The patient had a Neurology consultation done by Dr. Solo. The patient also was found to have cervical myelopathy with quadriparesis. The patient was started on physical therapy, and he also had positive serum RPR. 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 The patient was discharged in a stable condition to subacute rehabilitation at [facility]. FINAL DIAGNOSES: 1. Cervical myelopathy with quadriparesis. 2. Frequent falls. 3. Hypertension. 4. History of cancer of the prostate. 5. 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 [facility] MD Karlo
== END 2017-10-03 21:30 | DRG 91 ==
LOC: C.ER 10:26 → C.9E 14:42 → C.3T 16:23
PROVIDERS: ADMIT Internal Medicine; ATTEND Internal Medicine
DX: G95.9 Disease of spinal cord, unspecified (principal); G82.50 Quadriplegia, unspecified; G95.89 Other specified diseases of spinal cord; E86.0 Dehydration; F17.200 Nicotine dependence, unspecified, uncomplicated; I11.9 Hypertensive heart disease without heart failure; I51.7 Cardiomegaly; N40.0 Benign prostatic hyperplasia without lower urinary tract symptoms; R29.6 Repeated falls; Z85.46 Personal history of malignant neoplasm of prostate; Z86.73 Personal history of transient ischemic attack (TIA), and cerebral infarction without residual deficits; M54.17 Radiculopathy, lumbosacral region; S14.159S Other incomplete lesion at unspecified level of cervical spinal cord, sequela; X58.XXXS Exposure to other specified factors, sequela; A53.0 Latent syphilis, unspecified as early or late

== ENCOUNTER 2018-01-03 14:42 | Inpatient (IN) | payer MEDICARE, BC ==
[2018-01-03 14:43] VITALS: BMI 23.6
[2018-01-03 17:29] LABS: BASO % 0.2 % (0.0-2.0); EOS # 0.2 K/uL (0.0-0.7); HEMOGLOBIN 11.3 g/dL (12.0-18.0); LYMPH # 2.4 K/uL (1.0-4.3); LYMPH % 30.5 % (20.0-40.0); MEAN CELL VOLUME 90.5 fL (80.0-94.0); MEAN CORPUSCULAR HEMOGLOBIN 29.8 pg (27.0-31.0); MEAN CORPUSCULAR HGB CONC 32.9 g/dL (33.0-37.0); MEAN PLATELET VOLUME 7.8 fL (7.2-11.7); MONO # 0.8 K/uL (0.0-0.8); MONO % 9.8 % (0.0-10.0); NEUT # 4.4 K/uL (1.8-7.0); NEUT % 56.5 % (50.0-75.0); RBC 3.8 Mil/uL (4.40-5.90); RED CELL DISTRIBUTION WIDTH 14.5 % (11.5-14.5); WHITE BLOOD COUNT 7.7 K/uL (4.8-10.8)
[2018-01-03 17:39] LABS: INR 1.1; PROTHROMBIN TIME 11.5 SECONDS (9.7-12.2)
[2018-01-03 17:57] LABS: URINE AMORPHOUS SEDIMENT RARE /ul (<OCC); URINE BACTERIA RARE (<OCC); URINE BILIRUBIN NEGATIVE (NEGATIVE); URINE BLOOD 1+ (NEGATIVE); URINE CLARITY Clear (Clear); URINE COLOR Yellow (YELLOW); URINE GLUCOSE (UA) NORMAL (Normal); URINE LEUKOCYTE ESTERASE NEG Leu/uL (Negative); URINE PROTEIN 1+ mg/dL (NEGATIVE)
--- NOTE | 2018-01-03 18:09 | CT ---
Date of service: 01/03/2018 PROCEDURE: CT HEAD WITHOUT CONTRAST. HISTORY: left side weakness COMPARISON: Noncontrast head CT performed 09/28/17 TECHNIQUE: Axial computed tomography images were obtained through the head/brain without intravenous contrast. Radiation dose: Total exam DLP = 2089.83 mGy-cm. This CT exam was performed using one or more of the following dose reduction techniques: Automated exposure control, adjustment of the mA and/or kV according to patient size, and/or use of iterative reconstruction technique. FINDINGS: Streak artifact obscures evaluation of the skull base. HEMORRHAGE: No intracranial hemorrhage. BRAIN: Diffuse atrophy with prominence of the ventricles and sulci noted. No mass effect or edema. Intracranial atherosclerotic calcifications. Bilateral basal ganglia calcifications. Scattered periventricular and subcortical white matter hypodensities, which are nonspecific, but often seen with chronic microvascular ischemic disease. Please note that MRI with diffusion imaging is more sensitive in the detection of acute ischemic event. VENTRICLES: No hydrocephalus. CALVARIUM: Unremarkable. PARANASAL SINUSES: Unremarkable as visualized. No significant inflammatory changes. MASTOID AIR CELLS: Unremarkable as visualized. No inflammatory changes. OTHER FINDINGS: [employer] view demonstrates posterior cervical spine fusion hardware. IMPRESSION: Generalized atrophy. Nonspecific white matter changes. Please note that MRI with diffusion imaging is more sensitive in the detection of acute ischemic event. Additional findings as above.
--- NOTE | 2018-01-03 18:14 | C.PDOC ---
History Of Present Illness 82 y/o male, w/PMhx of HTN and BPH, and stroke(2004) presents to the ER complaining of left leg weakness which began 2 days ago. Patient states that he went to the bathroom and he felt dizzy when he left the bathroom. Patient reports that he leaned against the wall and and slowly sat down. He notes that the weakness became gradually worse last night. He has trouble waking. He had physical therapy in his home today, the physical therapist noticed the weakness and called his PMD, Dr. Dietrich. advised him to visit the ER. Patient notes that he has some numbness in his right arm. Denies having fever, chills, CP, SOB, nausea, and vomiting. Of note, patient has persistent right sided weakness s/p stroke in 2004. <Estefany Werner - Last Filed: 01/03/18 19:25> History Per: Patient History/Exam Limitations: no limitations Onset/Duration Of Symptoms: Days Current Symptoms Are (Timing): Still Present Severity: Moderate <Estefany Werner - Last Filed: 01/03/18 19:25> <Herminio Tellez - Last Filed: 01/03/18 21:06> Time Seen by Provider: 01/03/18 16:03 Chief Complaint (Nursing): Weakness/Neurological Deficit Past Medical History Reviewed: Historical Data, Nursing Documentation, Vital Signs Vital Signs: Last Vital Signs Temp 97.7 F 01/03/18 14:44 Pulse 100 H 01/03/18 17:59 Resp 20 01/03/18 17:59 BP 152/83 H 01/03/18 17:59 Pulse Ox 99 01/03/18 17:59 - Medical History PMH: Arthritis (NECK, BACK SURGERIES; L SH STIFF), HTN, Hypercholesterolemia Denies: Chronic Kidney Disease Other Surgeries: Hx of surgeries - [facility] Procedures OTH & OPEN REPAIR DIRECT INGUINAL HERNIA W GRAFT OR PROSTH (08/04/14) Family History: States: No Known Family Hx - Social History Hx Alcohol Use: No Hx Substance Use: No - Immunization History Hx Tetanus Toxoid Vaccination: No Hx Influenza Vaccination: No Hx Pneumococcal Vaccination: No <Estefany Werner - Last Filed: 01/03/18 19:25> Vital Signs: Last Vital Signs Temp 97.7 F 01/03/18 14:44 Pulse 100 H 01/03/18 17:59 Resp 20 01/03/18 17:59 BP 152/83 H 01/03/18 17:59 Pulse Ox 99 01/03/18 19:25 - [facility] Procedures OTH & OPEN REPAIR DIRECT INGUINAL HERNIA W GRAFT OR PROSTH (08/04/14) <Herminio Tellez - Last Filed: 01/03/18 21:06> Review Of Systems Except As Marked, All Systems Reviewed And Found Negative. Constitutional: Negative for: Fever, Chills Cardiovascular: Negative for: Chest Pain Respiratory: Negative for: Shortness of Breath Gastrointestinal: Negative for: Nausea, Vomiting Neurological: Positive for: Weakness, Numbness. Negative for: Headache <Estefany Werner - Last Filed: 01/03/18 19:25> Physical Exam - Physical Exam Appears: Non-toxic, No Acute Distress Skin: Normal Color, Warm, Dry Head: Atraumatic, Normacephalic Eye(s): bilateral: Normal Inspection Nose: Normal Oral Mucosa: Moist Neck: Supple Chest: Symmetrical Cardiovascular: Rhythm Regular, No Murmur Respiratory: Normal Breath Sounds, No Rales, No Rhonchi, No Wheezing Gastrointestinal/Abdominal: Normal Exam, Soft, No Tenderness, No Guarding, No Rebound Extremity: Normal ROM Neurological/Psych: Oriented x3, Normal Speech, Normal Cranial Nerves (3-12), Other (RUE: Motor Strength 5/5 LUE: Motor Strength 4/5, LLE & RLE: Motor Strength 4/5) <Estefany Werner - Last Filed: 01/03/18 19:25> ED Course And Treatment - Laboratory Results Result Diagrams: 01/03/18 17:20 ECG: Interpreted By Me, Viewed By Me ECG Rhythm: Sinus Rhythm ECG Interpretation: Normal Interpretation Of ECst degree av block, no ischemic changes, left axis devia tion Rate From EC O2 Sat by Pulse Oximetry: 99 (RA) Pulse Ox Interpretation: Normal <Estefany Werner - Last Filed: 01/03/18 19:25> - Laboratory Results Result Diagrams: 01/03/18 17:20 01/03/18 19:50 <Herminio Tellez - Last Filed: 01/03/18 21:06> NIHSS Stroke Scale 2 - Date/Time Evaluation Performed Date Performed: 01/03/18 - How Severe is the Stroke Level of Consciousness: 0=Alert LOC to Questions: 0=Both comments correct LOC to commands: 0=Obeys both correctly Best Gaze: 0=Normal Visual: 0=No visual loss Facial: 0=Normal Motor Arm - Left: 0=No drift Motor Arm - Right: 0=No drift Motor Leg - Left: 1=Drift before 5 sec Motor Leg - Right: 0=No drift Limb Ataxia: 0=Absent Sensory: 0=Normal Best Language: 0=No aphasia Dysarthia: 0=Normal articulation Extinction & Inattention (Neglect): 0=Normal, no object Score: 1 <Herminio Tellez - Last Filed: 01/03/18 21:06> rTPA Inclusion/Exclusion - Refusal of Treatment Patient Refused Treatment: No - Inclusion Criteria for Altepase Patient is 18 years or Older: Yes The Clinical Diagnosis of Ischemic Stroke That is Causing a Potentially Disabling Neurological Deficit: Yes Time of Onset is Well Established to be Less Than 270 Minute Before Treatment Would Begin: No Risk/Benefit Discussed With Patient/Family Member Present: Yes - Exclusion Criteria for Altepase Uncontrolled Hypertension at Time of Treatment (Systolic BP above 185 or Diastolic BP above 110 mmHg): No Active Internal Bleeding: No Known Bleeding Diathesis Including but Not Limited to: Platelets Below 100,000/mm,PTT Above 40 sec After Heparin Use, Current Use of Oral Anitcoagulant With INR Greater Than 1.7 or PT Greater Than 15 secs: No Evidence of an Intracranial Hemorrhage: No Evidence of Major Acute Infarct With Signs Greater Than 1/3 MCA Territory: No Suspicion of Subarachnoid Hemorrhage on Pretreatment Evaluation Even if CT Head Negative For Hemorrhage: No - Warning to TPA With Conditions Following Conditions Weighed Against Anticipated Benefit: Yes Condition: Rapid Improvement, Age Greater Than 75 years Additional Condition (For 3-4.5 Hour Window): Prior Stroke and Diabetes <Herminio Tellez - Last Filed: 01/03/18 21:06> Medical Decision Making Medical Decision Making: Plan: --Labs --ECG --CXR --UA --CT-Head <Estefany Werner - Last Filed: 01/03/18 19:25> Disposition <Estefany Werner - Last Filed: 01/03/18 19:25> Discussed With DrHenrik: Dave Dietrich Comment: accepted the pt on his service and took over the care at 9PM Doctor Will See Patient In The: Hospital Counseled Patient/Family Regarding: Studies Performed, Diagnosis - Disposition Disposition Time: 19:00 - POA Present On Arrival: None <Herminio Tellez - Last Filed: 01/03/18 21:06> - Disposition Disposition: HOSPITALIZED Condition: FAIR Forms: [facility] (Bulgarian) - Clinical Impression Clinical Impression: Left leg weakness, TIA (transient ischemic attack) - Scribe Statement The provider has reviewed the documentation as recorded by the Baltazar Donald Provider Attestation: All medical record entries made by the Baltazar were at my direction and personally dictated by me. I have reviewed the chart and agree that the record accurately reflects my personal performance of the history, physical exam, medical decision making, and the department course for this patient. I have also personally directed, reviewed, and agree with the discharge instructions and disposition. <Estefany Werner - Last Filed: 01/03/18 19:25> Decision To Admit <Estefany Werner - Last Filed: 01/03/18 19:25> - Pt Status Changed To: Hospital Disposition Of: Inpatient - Admit Certification Admit to Inpatient:: After my assessment, the patient will require ho spitalization for at least two midnights. This is because of the severity of symptoms shown, intensity of services needed, and/or the medical risk in this patient being treated as an outpatient. - InPatient: Physician Admission Certification: I certify that this patient requires 2 or more midnights of care for the following reason:: After my assessment, the patient will require hospitalization for at least two midnights. This is because of the severity of symptoms shown, intensity of services needed, and/or the medical risk in this patient being treated as an outpatient. - . Bed Request Type: Telemetry Admitting Physician: Dave Dietrich <Herminio Tellez - Last Filed: 01/03/18 21:06> - . Patient Diagnosis: Left leg weakness, TIA (transient ischemic attack)
--- NOTE | 2018-01-03 18:29 | RAD ---
Date of service: 01/03/2018 PROCEDURE: CHEST RADIOGRAPH, 1 VIEW HISTORY: chest pain COMPARISON: 09/28/2017 FINDINGS: LUNGS: Clear. PLEURA: No pneumothorax or pleural fluid seen. CARDIOVASCULAR: No aortic atherosclerotic calcification present. No radiographic findings to suggest acute or significant cardiovascular disease. OSSEOUS STRUCTURES: No significant abnormalities. VISUALIZED UPPER ABDOMEN: Normal. OTHER FINDINGS: None. IMPRESSION: No active disease.No significant interval change compared to the prior examination(s).
[2018-01-03 20:09] LABS: ALB/GLOB RATIO 1.1 (1.0-2.1); ALBUMIN 3.7 g/dL (3.5-5.0); ALT/SGPT 30 U/L (21-72); AST/SGOT 47 U/L (17-59); BLOOD UREA NITROGEN 22 mg/dL (9-20); CALCIUM 9.1 mg/dl (8.6-10.4); GFR NON-AFRICAN AMERICAN 58
--- NOTE | 2018-01-04 07:23 | CP.PCM.CON ---
History of Present Illness - History of Present Illness History of Present Illness: CONSULTATION DICTATED NEW RECURRETNT WEAKNESS WITH STIFFNESS ON LEFT SIDE LEFT MILD HEMIPARESIS RIGHT SUB CORTICAL STROKE Vs FOCAL SEIZURES MRI/CAROTID/EEG/ECHO DUAL ANTIPLATELETS /ARB/STATIN DVT POPHYLAXIS Past Patient History - Past Medical History & Family History Past Medical History?: Yes - Past Social History Smoking Status: Heavy Smoker > 10 Cigarettes Daily - CARDIAC Hx Hypercholesterolemia: Yes Hx Hypertension: Yes - PULMONARY Hx Respiratory Disorders: No - NEUROLOGICAL HX Cerebrovascular Accident: Yes (RT SIDED WEAKNESS 2004) - HEENT Hx HEENT Problems: Yes Hx Cataracts: Yes - RENAL Hx Chronic Kidney Disease: No - ENDOCRINE/METABOLIC Hx Endocrine Disorders: No - HEMATOLOGICAL/ONCOLOGICAL Hx Cancer: Yes (PROSTATE) - INTEGUMENTARY Hx Dermatological Problems: No - MUSCULOSKELETAL/RHEUMATOLOGICAL Hx Arthritis: Yes (NECK, BACK SURGERIES; L SH STIFF) - GENITOURINARY/GYNECOLOGICAL Hx Genitourinary Disorders: Yes Hx Prostate Cancer: Yes (SEEDS/RADIATION) - PSYCHIATRIC Hx Substance Use: No - SURGICAL HISTORY Hx Surgeries: Yes Hx Musculoskeletal Surgery: Yes (CERVICAL /SCREWS AND PINS) Other/Comment: PROSTATE SEEDS/RADIATION - ANESTHESIA Hx Anesthesia: Yes Hx Anesthesia Reactions: No Hx Malignant Hyperthermia: No Meds Allergies/Adverse Reactions: Allergies Allergy/AdvReac Type Severity Reaction Status Date / Time No Known Allergies Allergy Verified 01/03/18 14:46 - Medications Medications: Current Medications Acetaminophen (Tylenol 325mg Tab) 650 mg PO Q6 PRN PRN Reason: Pain, moderate (4-7) Aspirin (Ecotrin) 81 mg PO DAILY [facility] Atenolol (Tenormin) 50 mg PO DAILY [facility] Baclofen (Lioresal) 5 mg PO BID [facility] Chlorthalidone (Hygroton) 25 mg PO DAILY [facility] Clopidogrel Bisulfate (Plavix) 75 mg PO DAILY [facility] Folic Acid (Folic Acid) 1 mg PO DAILY [facility] Rosuvastatin Calcium (Crestor) 10 mg PO HS [facility] Tamsulosin HCl (Flomax) 0.4 mg PO DAILY [facility] Results - Vital Signs Recent Vital Signs: Last Vital Signs Temp 98.3 F 01/04/18 05:44 Pulse 82 01/04/18 05:44 Resp 16 01/04/18 05:44 BP 125/69 01/04/18 05:44 Pulse Ox 97 01/04/18 05:44 - Labs Result Diagrams: 01/03/18 17:20 01/03/18 19:50 Labs: Laboratory Results - last 24 hr 01/03/18 01/03/18 01/03/18 15:07 17:20 17:20 WBC 7.7 RBC 3.80 L Hgb 11.3 L Hct 34.4 L MCV 90.5 MCH 29.8 MCHC 32.9 L RDW 14.5 Plt Count 263 MPV 7.8 Neut % (Auto) 56.5 Lymph % (Auto) 30.5 [place] % (Auto) 9.8 Eos % (Auto) 3.0 Baso % (Auto) 0.2 Neut # (Auto) 4.4 Lymph # (Auto) 2.4 [place] # (Auto) 0.8 Eos # (Auto) 0.2 Baso # (Auto) 0.0 PT 11.5 INR 1.1 APTT 30 Sodium Potassium Chloride Carbon Dioxide Anion Gap BUN Creatinine Est GFR ( Amer) Est GFR (Non-Af Amer) POC Glucose (mg/dL) 95 Random Glucose Calcium Magnesium Total Bilirubin AST ALT Alkaline Phosphatase Total Protein Albumin Globulin Albumin/Globulin Ratio Urine Color Urine Clarity Urine pH Ur Specific [place] Urine Protein Urine Glucose (UA) Urine Ketones Urine Blood Urine Nitrate Urine Bilirubin Urine Urobilinogen Ur Leukocyte Esterase Urine WBC (Auto) Urine RBC (Auto) Amorphous Sediment Urine Bacteria 01/03/18 01/03/18 17:20 19:50 WBC RBC Hgb Hct MCV MCH MCHC RDW Plt Count MPV Neut % (Auto) Lymph % (Auto) [place] % (Auto) Eos % (Auto) Baso % (Auto) Neut # (Auto) Lymph # (Auto) [place] # (Auto) Eos # (Auto) Baso # (Auto) PT INR APTT Sodium 137 Potassium 3.9 Chloride 100 Carbon Dioxide 28 Anion Gap 13 BUN 22 H Creatinine 1.2 Est GFR ( Amer) > 60 Est GFR (Non-Af Amer) 58 POC Glucose (mg/dL) Random Glucose 100 Calcium 9.1 Magnesium 1.9 Total Bilirubin 0.2 AST 47 ALT 30 Alkaline Phosphatase 59 Total Protein 6.9 Albumin 3.7 Globulin 3.2 Albumin/Globulin Ratio 1.1 Urine Color Yellow Urine Clarity Clear Urine pH 5.0 Ur Specific [place] 1.020 Urine Protein 1+ H Urine Glucose (UA) Normal Urine Ketones Negative Urine Blood 1+ H Urine Nitrate Negative Urine Bilirubin Negative Urine Urobilinogen 2.0 Ur Leukocyte Esterase Neg Urine WBC (Auto) 2 Urine RBC (Auto) 15 H Amorphous Sediment Rare H Urine Bacteria Rare
[2018-01-04 08:53] LABS: PROLACTIN 18.1 ng/mL (3.7-17.9)
[2018-01-04 09:43] LABS: FREE T4 1.26 ng/dL (0.78-2.19)
[2018-01-04] MEDS: Baclofen 5 mg Tab PO SCH ×2 (12:03→17:57)
--- NOTE | 2018-01-04 18:03 | CON ---
DATE: 01/04/2018 ATTENDING PHYSICIAN: Dave Dietrich MD. LOCATION: The patient room number ER holding bed number 14. REASON FOR CONSULTATION: Possible stroke. CHIEF COMPLAINT: The patient was brought into [facility] with the advice of his primary care physician to evaluate his new weakness on his left side. From neurological point of view, I was called into evaluate him for further management. HISTORY OF PRESENT ILLNESS: Mr. Nii Sanders is an 82-year-old right-handed male, usual state of health. He has been ambulating with cane and walker at times due to his previous stroke and back surgeries. For the last 2 weeks he has been noticing his leg weakness, losing his balance, leaning on his left side, associating with stiffness of his left arm twisting inside involuntarily. This episode lasted for about half an hour to an hour or so. This has been happening frequently for the last 2 weeks. Yesterday he had it five times. This is not associating with left-sided facial weakness or visual or bulbar dysfunction. No similar episodes happened in the past. PAST MEDICAL HISTORY: Hypertension, old stroke in 2004, had a lumbar laminectomy in 2004. PERSONAL HISTORY: Recently quit smoking. No history of alcohol use. ALLERGIES: NO KNOWN ALLERGIES. REVIEW OF SYSTEMS: A 12-point system being reviewed. Per neuro, new weakness on his left side. MEDICATIONS: Crestor, Ecotrin, Flomax, folic acid, Hygro[place], , baclofen, Tenormin, Tylenol. PHYSICAL EXAMINATION: VITAL SIGNS: Blood pressure 125/69, mean artery pressure of 87, respiratory rate 18, temperature 98.3 with a pulse rate 82 and regular. NECK: Supple. No carotid bruits. HEART: Sounds regular. CHEST: Fair air entry. EXTREMITIES: No edema in legs. NEUROLOGIC EXAMINATION: Mental status examination: He is awake, alert, oriented to person, place and time. He is seems to be apprehensive of going home. Speech is clear. He follows two to three step complex command. No right and left confusion. Cranial nerve examination: Visual field intact. Pupils react to light. Extraocular movement normal. No nystagmus. No facial sensory deficit. Mild facial asymmetry manifesting as flattening of the right nasolabial nasolabial fold. Hearing is normal. Tongue is midline. Good gag. Motor examination: Outstretched hand with eyes closed, no drift noted on his right side, left side is limited due to his increased spasticity. He is really able to lift right leg better than his left leg against the gravity from the bed. Deep tendon reflexes, biceps, brachialis, triceps 3+ on either side. Both knees are absent. Both ankles are absent. Plantars are upgoing on both sides. Sensory examination: Decreased temperature And pain on his left side to compare with the right side. Coordination: Finger-nose test is intact on his right side. CONCLUSION: Nii Waiters as per neurological examination presenting with spastic left hemiparesis consistent with right thalamic dysfunction versus brainstem dysfunction. However, the recurrent episode could be related to focal seizure. This dysfunction probably ischemic process versus a space-occupying lesion. Workup CT of the head reviewed, no acute pathology is noted. Bilateral basilar calcification noted. Blood workup, WBC 7.7, hemoglobin 11.3, hematocrit 34.4, platelet 263. PT 11.5, INR 1.1, PTT 30. Sodium 137, potassium at 3.9, chloride 100, bicarbonate 28, BUN 32, creatinine 1.1, GFR more than 60. Urine shows rare amorphous sediments with 1+ hematuria and proteinuria. EKG normal sinus rhythm. RECOMMENDATIONS: 1. MRI of the brain to rule out any acute pathology. 2. Carotid Doppler to assess the stenosis. 3. Echocardiogram to rule out any cardioembolic phenomenon. 4. EEG to rule out any paroxysmal activities or focal slowing. 5. Dual antiplatelet is recommended. The patient failing with aspirin, I would like to put him on Plavix at least for 6 months for the stroke prevention. 6. Agree with statin as well as angiotensin converting enzyme inhibitors or angiotensin receptor blockers to stabilize his cerebrovascular endothelium. 7. Deep venous thrombosis prophylaxis and physical therapy should be instituted as early as possible. While he is in the hospital, the patient will be followed closely with you. Julito Solo MD
--- NOTE | 2018-01-04 18:11 | CARD ---
APPROVED REPORT Date of service: 01/04/2018 EXAM: Two-dimensional and M-mode echocardiogram with Doppler and color Doppler. Other Information Quality : GoodRhythm : INDICATION CVA/TIA RISK FACTORS Hypertension Hyperlipidemia 2D DIMENSIONS IVSd0.7 (0.7-1.1cm)LVDd4.2 (3.9-5.9cm) PWd0.7 (0.7-1.1cm)LA Aoimsq40 (18-58mL) LVDs2.7 (2.5-4.0cm)FS (%) 36.8 % LVEF (%)67.0 (>50%)LVEF (Gonzalez's)58.68 % M-Mode DIMENSIONS Left Atrium (MM)4.01 (2.5-4.0cm)IVSd0.72 (0.7-1.1cm) Aortic Root3.39 (2.2-3.7cm)LVDd4.52 (4.0-5.6cm) Aortic Cusp Exc.2.06 (1.5-2.0cm)PWd0.57 (0.7-1.1cm) FS (%) 32 %LVDs3.08 (2.0-3.8cm) LVEF (%)60 (>50%) Mitral Valve MV E Nuiqztvs56.4cm/sMV A Vkzaheeu43.2cm/sE/A ratio0.8 TDI Lateral E' Peak V8.45cm/sMedial E' Peak V6.09cm/sE/Lateral E'7.9 E/Medial E'10.9 Tricuspid Valve TR Peak Yxylreez770lh/sTR Peak Gr.31ltMlSFCQ73ezGv LEFT VENTRICLE The left ventricle is normal size. There is normal left ventricular wall thickness. The left ventricular systolic function is normal. The left ventricular ejection fraction is within the normal range. There is normal LV segmental wall motion. Transmitral Doppler flow pattern is Grade I-abnormal relaxation pattern. RIGHT VENTRICLE The right ventricle is normal size. The right ventricular systolic function is normal. ATRIA The left atrium size is normal. The right atrium size is normal. AORTIC VALVE The aortic valve is slightly calcified but opens well. No aortic regurgitation is present. MITRAL VALVE The mitral valve is normal in structure. There is no mitral valve regurgitation noted. TRICUSPID VALVE The tricuspid valve is normal in structure. There is mild tricuspid regurgitation. Right ventricular systolic pressure is estimated at - 38 mmHg. There is mild pulmonary hypertension. PULMONIC VALVE The pulmonary valve is normal in structure. GREAT VESSELS The aortic root is normal in size. The IVC was not well visualized. PERICARDIAL EFFUSION There is no pericardial effusion. <Conclusion> The left ventricular systolic function is normal. There is normal LV segmental wall motion. Diastolic dysfunction Grade I The right ventricular systolic function is normal. There is mild tricuspid regurgitation. Right ventricular systolic pressure is estimated at - 38 mmHg compatible with mild pulmonary hypertension. There is no pericardial effusion.
[2018-01-04 19:18] LABS: HDL CHOLESTEROL 60 mg/dL (30-70)
[2018-01-04 19:25] LABS: LDL CHOLESTEROL 86 mg/dL (0-129)
--- NOTE | 2018-01-05 09:13 | HP ---
HISTORY OF PRESENT ILLNESS: This is an 82-year-old male who was brought to [facility] after a fall. Nurse called my office on the day of admission and stated that the patient fell, and he has weakness in his left side. The patient was evaluated in the emergency room, and he was found to have the same. Subsequently, the patient was admitted for further management. Neurology consult was called for further evaluation. The patient has been ambulating with a walker after an extended period of rehabilitation after the last admission. The patient has been noticed to have progressive worsening of his balance and walking, leaning on his left side, associated with stiffness in his left arm, twisting inside involuntarily. The patient noticed that his left arm also has been twisting involuntarily and it had been happening frequently on the day prior to admission. Other review of system is negative. ALLERGIES: NO KNOWN ALLERGIES. MEDICATIONS: Reviewed and ordered as per MAR. SOCIAL HISTORY: Ex-smoker. No EtOH or substance abuse. FAMILY HISTORY: Not contributory. PHYSICAL EXAMINATION: GENERAL: The patient was in bed, not in any cardiopulmonary distress. VITAL SIGNS: Blood pressure 114/60, temperature 97.4, respiratory rate 18, and pulse 62. HEENT: Pupils equal and reactive to light. Normal-appearing mucosa of the conjunctivae, oropharynx, and nasal membrane mucosa. NECK: Supple. No JVD. No carotid bruit. No lymph node. No thyromegaly. CHEST AND LUNGS: Bilateral symmetrical expansion. Good air exchange. Normoactive bowel sounds. No tenderness. No organomegaly. No masses. EXTREMITIES: No cyanosis, no clubbing, no edema. CENTRAL NERVOUS SYSTEM: Alert, awake, oriented x2; and the patient has hypertonia on the left side compared to the right with flexion contracture of the left elbow. ASSESSMENT: 1. Left-sided weakness. Differential diagnosis includes right thalamic dysfunction versus brainstem dysfunction. 2. Possible focal seizure. 3. Benign prostatic hypertrophy. PLAN: We will follow neurology recommendation, MRI of the brain to rule out any acute pathology, carotid Doppler, echocardiogram, EEG, dual antiplatelet therapy, physical therapy. Dave Dietrich MD
--- NOTE | 2018-01-05 09:43 | PN ---
DATE: 01/05/2018 TIME OF EVALUATION: 07:20 a.m. NEUROLOGICAL PROBLEM: Left hemiparesis, possible quadriparesis versus new ischemic process in right subcortical region. PHYSICAL EXAMINATION: VITAL SIGNS: Blood pressure 100/54, mean arterial pressure 69, respirations 18, and temperature 97.3, and pulse rate 67. NEUROLOGIC: The patient is awake and alert. Mentation is normal. Moves all 4 extremities. Significant left side increased tone with 4/5 weakness. Plantars are upgoing on both sides. The patient adamantly refused to not having MRI of the brain. However, other workups have been completed. We will be following his encephalogram. I will review it. His blood workup shows prolactin level is high. Homocystine is 8.3, B12 422 with a TSH of 1.40. Continue with the present management. Increase hydration. The patient should get out of the bed and physical therapy should be instituted. The patient will be followed closely with you. Julito Solo MD
[2018-01-05] MEDS: Baclofen 5 mg Tab PO SCH ×2 (10:02→19:13)
[2018-01-05] MEDS: Enoxaparin 40 mg Syringe SC SCH (10:02)
[2018-01-05] MEDS: Influenza Vaccine 60 MCG/0.5 ML SYR (3 yr & up) IM ONE ×2 (13:35→13:37)
[2018-01-05] MEDS ORDERED: Cholestyramine 4 gm/Pkt UD PO PRN (22:45)
[2018-01-05] MEDS ORDERED: Iohexol 240 (50 ml) PO ONE (23:01)
--- NOTE | 2018-01-06 00:01 | PN ---
DATE: 01/05/2018 SUBJECTIVE: The patient is seen today, 01/05/2018. He still has unsteady gait and left-sided weakness. The patient had two loose bowel movements. PHYSICAL EXAMINATION: VITAL SIGNS: Blood pressure 113/72, temperature 97.4, respiratory rate 20, and pulse 61. HEENT: Normal-appearing mucosa of the conjunctivae, oropharynx, and nasal membrane mucosa. NECK: Supple. No JVD. No carotid bruit. No lymph node. No thyromegaly. CHEST AND LUNGS: Bilateral symmetrical expansion. Good air exchange. No rales, no rhonchi. CARDIOVASCULAR SYSTEM: PMI not localized. S1, S2. No additional sounds. ABDOMEN: Normoactive bowel sounds. No tenderness. No organomegaly. No masses. EXTREMITIES: No cyanosis, no clubbing, no edema. CENTRAL NERVOUS SYSTEMS: Alert, awake, and oriented x2, and the patient has left-sided weakness upper and lower extremities as well as unsteady dysfunctional gait. ASSESSMENT: 1. Unsteadiness with unsteady gait with frequent falls secondary to left-sided weakness and possible subcortical dysfunction. 2. History of hypertension, currently controlled and diet. 3. History of benign prostatic hypertrophy. Dave Dietrich MD
--- NOTE | 2018-01-06 09:08 | CT ---
Date of service: 01/06/2018 PROCEDURE: CT Abdomen and Pelvis without intravenous contrast HISTORY: Abdominal pain, diarrhea COMPARISON: 10/14/2016 TECHNIQUE: Multiple contiguous axial images were performed through the abdomen and pelvis without the use of intravenous contrast. Subsequently, sagittal and coronal reformatted images were obtained. Radiation dose: Total exam DLP = 282.41 mGy-cm. This CT exam was performed using one or more of the following dose reduction techniques: Automated exposure control, adjustment of the mA and/or kV according to patient size, and/or use of iterative reconstruction technique. FINDINGS: LOWER THORAX: Scattered atelectasis at the lung bases. Cardiomegaly. LIVER: 1.2 centimeter hypodensity in the right hepatic lobe demonstrating a Hounsfield unit attenuation of 14, indeterminate. Correlation with multiphasic CT may be helpful if clinically indicated. GALLBLADDER AND BILE DUCTS: Unremarkable. PANCREAS: Heterogeneous appearance of the pancreas. SPLEEN: Unremarkable. ADRENALS: Nodular thickening of the adrenal glands. KIDNEYS AND URETERS: Upper pole 3.4 centimeter low-attenuation lesion in the left kidney demonstrating a Hounsfield unit attenuation of 6 suggestive for a cyst. VASCULATURE: Unremarkable. No aortic aneurysm. Aortic atherosclerotic calcification or mural plaque present. BOWEL: Moderate to severe fecal retention in the colon. Diffuse thickening of the rectosigmoid junction, possibly inflammatory and or infectious pathology. Clinical correlation. APPENDIX: Not well identified on this noncontrast study. If there is concern for abdomen deal appendiceal pathology, consider correlation with a contrast-enhanced scan. PERITONEUM: Unremarkable. No free fluid. No free air. LYMPH NODES: Few shotty inguinal and para-aortic lymph nodes. Few shotty mesenteric lymph nodes. BLADDER: Question minimal thickening of the urinary bladder. REPRODUCTIVE: Heterogeneous prostate with prostate seeds in place. BONES: Degenerative changes in the spine and shoulders. OTHER FINDINGS: Limited study without contrast. IMPRESSION: Limited study without contrast. Diffuse thickening of the rectosigmoid junction, possibly inflammatory and or infectious pathology. Clinical correlation. Moderate to severe fecal retention in the colon. Mild thickening of the urinary bladder wall. Heterogeneous and prominent prostate with seeds in place. Appendix not well identified on this study. Additional findings as above. A preliminary report was generated at 2:41 a.m. on 01/06/[address] Brittany Zavala from [facility]
[2018-01-06] MEDS: Baclofen 5 mg Tab PO SCH ×2 (09:19→17:56)
[2018-01-06] MEDS: Enoxaparin 40 mg Syringe SC SCH (09:19)
[2018-01-06] MEDS: Ciprofloxacin 400mg/200ml D5W 400 MG/200 ML BAG IVPB SCH (22:08)
[2018-01-07] MEDS: Enoxaparin 40 mg Syringe SC SCH (09:26)
[2018-01-07] MEDS: Ciprofloxacin 400mg/200ml D5W 400 MG/200 ML BAG IVPB SCH ×2 (09:30→21:56)
[2018-01-07] MEDS: Baclofen 5 mg Tab PO SCH ×2 (10:30→17:45)
--- NOTE | 2018-01-08 00:25 | PN ---
DATE: 01/06/2018 SUBJECTIVE: The patient was seen on 01/06/2018. He was not in any cardiopulmonary distress. The patient had a CT scan of the abdomen and pelvis done that showed inflammatory versus infectious disease. The patient's diarrhea improved after giving Questran. OBJECTIVE: VITAL SIGNS: Blood pressure was 113/66, temperature 97.2, respiratory rate 20 and pulse 65. HEENT: Pupils equal and reactive to light. Normal-appearing mucosa of the conjunctivae, oropharynx and nasal membrane mucosa. NECK: Supple. No JVD. No carotid bruit. No lymph node. No thyromegaly. CHEST AND LUNGS: Bilateral symmetrical expansion. Good air exchange. No rales, no rhonchi. CARDIOVASCULAR SYSTEM: PMI not localized. S1, S2. No additional sounds. ABDOMEN: Normoactive bowel sounds. No tenderness. No organomegaly. No masses. EXTREMITIES: No cyanosis, no clubbing, no edema. 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 ASSESSMENT: 1. Left-sided hemiparesis with fall and unsteadiness. 2. Inflammatory versus infectious colitis. 3. History of prostate cancer status post seed implantation. 4. Hypertension. PLAN: Continue current medications and plan to collect stool and start the patient on Cipro and Flagyl and will follow up the results of the stool. Physical therapy and plan for discharge to subacute rehabilitation. Dave Dietrich MD
[2018-01-08] MEDS: Baclofen 5 mg Tab PO SCH ×2 (09:29→17:35)
[2018-01-08] MEDS: Enoxaparin 40 mg Syringe SC SCH (09:29)
[2018-01-08] MEDS: Ciprofloxacin 400mg/200ml D5W 400 MG/200 ML BAG IVPB SCH ×2 (09:29→21:44)
--- NOTE | 2018-01-08 13:08 | PN ---
DATE: 01/08/2018 TIME OF EVALUATION: 07:05 a.m. 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 PHYSICAL EXAMINATION: VITAL SIGNS: Blood pressure 111/67, mean arterial pressure of 81, respiratory rate 18, temperature is 97.8 with a pulse rate 72 and regular. NEUROLOGIC: The patient is awake. He denies any new involuntary movement or cramps on his left side. On examination, mild hemiparesis with tone increased on his left side. His recommended electroencephalogram has been reviewed shows focus slowing following with paroxysmal activities, generalized pattern seen intermittently followed with slow activities consistent with seizures. Physically does not show any tonic or clonic seizure activities during the study. Considering his stroke and presenting illness, the patient should be placed on anti-epileptic drugs. I am starting Keppra at 500 mg twice a day. This dose can be increased as he tolerates to reach the therapeutic level. The patient should be kept on DVT prophylaxis as well. Julito Solo MD
[2018-01-08 17:16] VITALS: RESP 20
--- NOTE | 2018-01-08 23:54 | PN ---
DATE: 01/08/2018 DAILY PROGRESS NOTE SUBJECTIVE: The patient is seen today, 01/08/2018. He is not in any cardiopulmonary distress. The patient overall feels better and no more diarrhea. PHYSICAL EXAMINATION: VITAL SIGNS: Blood pressure 104/53, temperature 97.5, respiratory rate 20, and pulse 64. HEENT: Normal-appearing mucosa of the conjunctivae. NECK: Supple. No JVD. No carotid bruit. No lymph node. No thyromegaly. CHEST AND LUNGS: Bilateral symmetrical expansion. Good air exchange. No rales. No rhonchi. CARDIOVASCULAR SYSTEM: PMI not localized. S1 and S2. No additional sounds. ABDOMEN: Normoactive bowel sounds. No tenderness. No organomegaly. No masses. EXTREMITIES: No cyanosis, no clubbing, no edema. CENTRAL NERVOUS SYSTEM: Alert, awake, oriented x2. The patient has quadriparesis with left side more than right side. ASSESSMENT: 1. Inflammatory/infectious colitis. 2. Progressive weakness of left and right lower extremities with frequent falls. 3. Hypertension. 4. History of prostate cancer, status post seed radiation. PLAN: Continue physical therapy. The patient refused to be transferred to Transitional Care Unit in [facility] for deconditioning and physical therapy. Continue current medications and if the patient remains stable, we will discharge home as per the patient's choice as he refused adamantly any rehabilitation at this point. Dave Dietrich MD
[2018-01-09 06:48] LABS: ALB/GLOB RATIO 1.1 (1.0-2.1); ALBUMIN 3.6 g/dL (3.5-5.0)
[2018-01-09 07:58] VITALS: BP 116/58; TEMP 97.5; O2SAT 97
[2018-01-09] MEDS: Baclofen 5 mg Tab PO SCH (10:30)
[2018-01-09] MEDS: Enoxaparin 40 mg Syringe SC SCH (10:30)
[2018-01-09] MEDS: Ciprofloxacin 400mg/200ml D5W 400 MG/200 ML BAG IVPB SCH (10:42)
--- NOTE | 2018-01-09 12:21 | CARD ---
APPROVED REPORT Date of service: 01/03/2018 EKG Measurement Heart [id number] <Conclusion> Sinus rhythm with 1st degree AV block Left axis deviation Abnormal ECG
--- NOTE | 2018-01-09 13:35 | EEG ---
DATE: 01/04/2018 This is a 16-channel electroencephalogram of awake and drowsy adult. During the study, photic stimulation was performed. Hyperventilation was not performed. Resting electroencephalogram consist of generalized low amplitude 4 to 5 Hz delta mixed with theta activity seen at parietal and occipital leads. The slow activity is continuously noted from the beginning. This followed with slow activities, then generalized spike and wave activities noted, which lasted for about two to three seconds followed with generalized slow activities. This periodic spike and wave activities noted intermittently following with generalized slow activities and persistent movement activities. However, there is no documented physical seizures as per the documentation by the ballistic technician. IMPRESSION: This is abnormal electroencephalogram because of persistent slowing following with spike and wave activities all consistent with generalized seizures. Please correlate the finding with the neurological and radiological studies. Julito Solo MD
[2018-01-09 17:04] VITALS: PULSE 60
--- NOTE | 2018-01-11 07:00 | DS ---
REASON FOR ADMISSION: This is an 82-year-old male who was admitted after a fall and left-sided weakness. COURSE OF HOSPITALIZATION: The patient was admitted to medical floor and the patient had a Neuro consult done by Dr. Solo. The patient's stay was complicated by diarrhea and CAT scan showed colitis, infectious versus inflammatory and the patient was started on both Cipro and Flagyl. The patient did well and he was discharged on p.o. antibiotics of Cipro and Flagyl and the patient will have home PT. FINAL DIAGNOSES: 1. Left-sided hemiparesis, multifactorial, subcortical disease and radiculopathy/myelopathy. 2. History of hypertension. 3. History of cancer of prostate, status post seed implantation. [facility] MD Karlo
== END 2018-01-09 17:19 | disposition home or self-care (01) | DRG 57 ==
LOC: C.ER 14:42 → C.9E 21:00 → C.6T 01-04 13:39
PROVIDERS: ADMIT Internal Medicine; ATTEND Internal Medicine
DX: G81.94 Hemiplegia, unspecified affecting left nondominant side (principal); G95.9 Disease of spinal cord, unspecified; M54.10 Radiculopathy, site unspecified; G56.82 Other specified mononeuropathies of left upper limb; A09 Infectious gastroenteritis and colitis, unspecified; I69.351 Hemiplegia and hemiparesis following cerebral infarction affecting right dominant side; W19.XXXA Unspecified fall, initial encounter; I10 Essential (primary) hypertension; N40.0 Benign prostatic hyperplasia without lower urinary tract symptoms; E78.00 Pure hypercholesterolemia, unspecified; R29.6 Repeated falls; F17.210 Nicotine dependence, cigarettes, uncomplicated; Z85.46 Personal history of malignant neoplasm of prostate

== ENCOUNTER 2018-03-11 17:00 | Emergency (ER) | payer BC, MEDICARE ==
[2018-03-11 17:01] VITALS: BMI 23.6
[2018-03-11] MEDS ORDERED: Lidocaine Hydrochloride 5 ML INJ ONE (17:16)
--- NOTE | 2018-03-11 18:20 | C.PDOC ---
History Of Present Illness 82 years old male with PMHx of CVA and HTN presents to ED for evaluation of head injury that was sustained [employer]. Patient states he was walking backwards and lost balance, then fell and hit his head. Denies LOC, back pain, hip pain, or any other physical complaints. Patient presents with laceration of occipital area. Time Seen by Provider: 03/11/18 17:05 Chief Complaint (Nursing): Abnormal Skin Integrity History Per: Patient History/Exam Limitations: no limitations Onset/Duration Of Symptoms: Hrs Current Symptoms Are (Timing): Still Present Location Of Injury: Anterior: Head Recent travel outside of the [place]: No Past Medical History Reviewed: Historical Data, Nursing Documentation, Vital Signs Vital Signs: Last Vital Signs Temp 98.3 F 03/11/18 17:14 Pulse 76 03/11/18 17:14 Resp 18 03/11/18 17:14 BP 165/71 H 03/11/18 17:14 Pulse Ox 95 03/11/18 17:14 - Medical History PMH: Arthritis, HTN, Hypercholesterolemia Denies: Chronic Kidney Disease - [facility] Procedures OTH & OPEN REPAIR DIRECT INGUINAL HERNIA W GRAFT OR PROSTH (08/04/14) Family History: States: No Known Family Hx - Social History Hx Alcohol Use: No Hx Substance Use: No - Immunization History Hx Tetanus Toxoid Vaccination: No Hx Influenza Vaccination: No Hx Pneumococcal Vaccination: No Review Of Systems Except As Marked, All Systems Reviewed And Found Negative. Constitutional: Negative for: Fever, Chills Gastrointestinal: Negative for: Nausea, Vomiting, Diarrhea Musculoskeletal: Negative for: Back Pain (Or hip pain ) Skin: Positive for: Other (Occipittal area laceration ). Negative for: Rash Neurological: Negative for: Weakness, Numbness, Headache Physical Exam - Physical Exam Appears: Non-toxic, No Acute Distress Skin: Warm, Dry, No Rash, Other Head: Atraumatic, Normacephalic, Laceration (2cm to occipital area horizontally ) Eye(s): bilateral: Normal Inspection, PERRL, EOMI Oral Mucosa: Moist Neck: Normal ROM, Supple Chest: Symmetrical, No Tenderness Cardiovascular: Rhythm Regular, No Murmur Respiratory: Normal Breath Sounds, No Rales, No Rhonchi, No Wheezing Gastrointestinal/Abdominal: Soft, No Tenderness Extremity: Normal ROM Extremity: Bilateral: Atraumatic, Normal Color And Temperature, Normal ROM Pulses: Left Radial: Normal, Right Radial: Normal Neurological/Psych: Oriented x3, Normal Speech, Normal Motor, Normal Sensation, Normal Reflexes Gait: Steady ED Course And Treatment O2 Sat by Pulse Oximetry: 95 (RA) Pulse Ox Interpretation: Normal - CT Scan/US CT HEAD Other Rad Studies (CT/US): Read By Radiologist, Radiology Report Reviewed CT/US Interpretation: Name:JAMILAH WOLFF Exam Date:Mar 11, 2018 6:45:04 PM EST. Modality Type:CT\SR. Description:CT - BRAIN. Gender:M Laterality:Not applicable. :33 Referring Physician:Nick finley MD, V. EXAM: CT Head without Intravenous Contrast. CLINICAL HISTORY: Trauma fall hx of stroke. TECHNIQUE: Axial computed tomography images of the head/brain without intravenous contrast. 0.00 mGy-cm. COMPARISON: None provided. FINDINGS: BRAIN. No acute intraparenchymal hemorrhage. No mass lesion. No CT evidence for acute territorial infarct. No midline shift or extra-axial collections. VENTRICLES: No hydrocephalus. ORBITS: The orbits are unremarkable. SINUSES AND MASTOIDS: The paranasal sinuses and mastoid air cells are clear. BONES: Extensive postsurgical changes are seen within the visualized cervical spine. SOFT TISSUES: Unremarkable. IMPRESSION: No acute intracranial abnormality. Extensive postsurgical changes cervical spine. Clinical correlation advised. . Electronically signed on Mar 11, 2018 7:08:29 PM EST by: Vinh East M.D., Certified by [facility], Diagnostic Radiology Laceration - Laceration Repair Laceration of occipital area Wound Length (In cm): 2 Description Of Wound: Linear Anesthesia: Lidocaine 1% Wound Examination: Irrigated With Saline, No FB With Wound Exploration Wound Debridement/Revision: Wound Debrided Wound Closure: Swoope (5) Wound Complexity: Simple (No active bleeding. Well tolerated. Successful.) Medical Decision Making Medical Decision Making: Plan: * Tylenol * CT Head Disposition Counseled Patient/Family Regarding: Studies Performed, Diagnosis, Need For Followup, Rx Given - Disposition Disposition: HOME/ ROUTINE Condition: STABLE Additional Instructions: Stephen removal in 7 days. Follow up with your PMD in 1-2 days Prescriptions: Acetaminophen [Tylenol 325mg tab] 325 mg PO QID #20 tab Instructions: Laceration Repair With Stephen (DC), Head Injury (ED) Forms: [facility] (Uzbek), General Discharge Instructions - POA Location Of Wound: head - Clinical Impression Clinical Impression: Scalp laceration - Scribe Statement The provider has reviewed the documentation as recorded by the Scribe Ludivina Man All medical record entries made by the Gurinderibe were at my direction and personally dictated by me. I have reviewed the chart and agree that the record accurately reflects my personal performance of the history, physical exam, medical decision making, and the department course for this patient. I have also personally directed, reviewed, and agree with the discharge instructions and disposition.
[2018-03-11 18:41] VITALS: PULSE 64
[2018-03-11 19:32] VITALS: BP 166/77; RESP 18; TEMP 98.3; O2SAT 99
--- NOTE | 2018-03-12 08:39 | CT ---
Date of service: 03/11/2018 PROCEDURE: CT HEAD WITHOUT CONTRAST. HISTORY: trauma COMPARISON: 01/03/2018 TECHNIQUE: Axial computed tomography images were obtained through the head/brain without intravenous contrast. Radiation dose: Total exam DLP = 1035.21 mGy-cm. This CT exam was performed using one or more of the following dose reduction techniques: Automated exposure control, adjustment of the mA and/or kV according to patient size, and/or use of iterative reconstruction technique. FINDINGS: HEMORRHAGE: No intracranial hemorrhage. BRAIN: No mass effect or edema. Mild age-appropriate atrophy. Mild periventricular white matter lucency consistent with chronic microvascular ischemic change. No change from prior examination. No evidence of acute infarct. VENTRICLES: Unremarkable. No hydrocephalus. CALVARIUM: No fracture. There are surgical luis enrique seen in the left posterior parietal scalp likely related to a laceration. PARANASAL SINUSES: Unremarkable as visualized. No significant inflammatory changes. MASTOID AIR CELLS: Unremarkable as visualized. No inflammatory changes. OTHER FINDINGS: None. IMPRESSION: No intracranial hemorrhage. Age related atrophy and chronic white matter ischemic change. Left posterior parietal scalp laceration with luis enrique. No additional abnormality. The preliminary findings for this examination were reported by [facility] at 7:08 p.m. on 03/11/2018. There is concurrence of this report with the preliminary findings.
== END 2018-03-11 19:46 | disposition home or self-care (01) ==
LOC: C.ER 17:00
DX: S01.01XA Laceration without foreign body of scalp, initial encounter (principal); W18.30XA Fall on same level, unspecified, initial encounter

== ENCOUNTER 2018-03-23 09:11 | Emergency (ER) | payer MEDICARE ==
[2018-03-23 09:11] VITALS: BMI 23.6
[2018-03-23 09:22] VITALS: BP 131/71; PULSE 59; RESP 16; TEMP 98.2; O2SAT 98
--- NOTE | 2018-03-23 10:22 | C.PDOC ---
History Of Present Illness 82 y/o male pt presents to the ER for staple removal. Pt fell approximately x1 week ago and received 6 stephen on occipital region. Pt denies wound d/c and currently has no other complaints. Time Seen by Provider: 03/23/18 09:23 Chief Complaint (Nursing): Suture/Staple Removal History Per: Patient History/Exam Limitations: no limitations Onset/Duration Of Symptoms: Days Ago (x1) Past Medical History Reviewed: Historical Data, Nursing Documentation, Vital Signs Vital Signs: Last Vital Signs Temp 98.2 F 03/23/18 09:20 Pulse 59 L 03/23/18 09:20 Resp 16 03/23/18 09:20 BP 131/71 03/23/18 09:20 Pulse Ox 98 03/23/18 09:20 - Medical History PMH: Arthritis, HTN, Hypercholesterolemia - [facility] Procedures OTH & OPEN REPAIR DIRECT INGUINAL HERNIA W GRAFT OR PROSTH (08/04/14) Family History: States: No Known Family Hx - Social History Hx Alcohol Use: No Hx Substance Use: No - Immunization History Hx Tetanus Toxoid Vaccination: No Hx Influenza Vaccination: No Hx Pneumococcal Vaccination: No Review Of Systems Except As Marked, All Systems Reviewed And Found Negative. Constitutional: Positive for: Other (stephen removal ). Negative for: Fever, Chills Cardiovascular: Negative for: Light Headedness Respiratory: Negative for: Shortness of Breath Gastrointestinal: Negative for: Nausea, Vomiting, Diarrhea Musculoskeletal: Negative for: Neck Pain Skin: Negative for: Rash Neurological: Negative for: Numbness, Dizziness Physical Exam - Physical Exam Appears: Non-toxic, No Acute Distress Skin: Warm, Dry Head: Normacephalic, No Tenderness, No Swelling, Other (6 stephen on occipital region ) Eye(s): bilateral: Normal Inspection Cardiovascular: Rhythm Regular Respiratory: Normal Breath Sounds Neurological/Psych: Oriented x3, Normal Speech, Normal Sensation ED Course And Treatment O2 Sat by Pulse Oximetry: 98 (RA) Pulse Ox Interpretation: Normal Medical Decision Making Medical Decision Making: Plans: -- Stephen removal PROCEDURE: Staple removal Performed by me Location: occipital region Occipital region: Normal. No deficits. Neurovascularly intact. Preparation: The wound was cleaned with NS and Betadine. The area was prepped and draped in the usual sterile fashion. Procedure: In total, 6 stephen were removed. Post-Procedure: Good closure and hemostasis. The patient tolerated the procedure well and there were no complications. Disposition - Disposition Referrals: [facility] Dayo John, [Non-Staff] - Disposition: HOME/ ROUTINE Disposition Time: 09:35 Condition: GOOD Additional Instructions: JAMILAH WOLFF, thank you for letting us take care of you today. The emergency medical care you received today was directed at your acute symptoms. If you were prescribed any medication, please fill it and take as directed. It may take several days for your symptoms to resolve. Return to the Emergency Department if your symptoms worsen, do not improve, or if you have any other problems. Please contact your doctor or call one of the physicians/clinics you have been referred to that are listed on the Patient Visit Information form that is included in your discharge packet. Bring any paperwork you were given at discharge with you along with any medications you are taking to your follow up visit. Our treatment cannot replace ongoing medical care by a primary care provider outside of the emergency department. Thank you for allowing the [facility] team to be part of your care today. Follow up with your primary care doctor if you have any concerns. Instructions: Staple Removal Forms: [employer] (Belgian) - Clinical Impression Clinical Impression: Removal of stephen - Scribe Statement The provider has reviewed the documentation as recorded by the Scribe Reeder Do Provider Attestation: All medical record entries made by the Scribe were at my direction and personally dictated by me. I have reviewed the chart and agree that the record accurately reflects my personal performance of the history, physical exam, medical decision making, and the department course for this patient. I have also personally directed, reviewed, and agree with the discharge instructions and disposition.
== END 2018-03-23 09:42 | disposition home or self-care (01) ==
LOC: C.ER 09:11
DX: Z48.02 Encounter for removal of sutures (principal)